=== PATIENT | female | born 1950 | race Caucasian/White ===

== ENCOUNTER 2018-01-04 08:29 | Observation (INO) | payer BC ==
[~2018-01-04] VITALS: Ht 167.6 cm; Wt 90.0 kg
[~2018-01-04 08:29] MED LIST: ALBUTEROL SULF8.5 GM IH; ALBUTEROL17 GM INH; ASPIR 8181 MG PO; ATROVENT HFA12.9 GM INH; Aspirin PO; CEFTIN250 MG PO; HYDROCHLOROTHIA25 MG PO; IBUPROFEN400 MG PO; KLONOPIN0.5 M1 PO; LEXAPRO20 MG PO; LORTAB 7.5-5001 EACH PO; LOVENOX30 MG/0.3 SC; PREDNISONE20 MG PO; PREMPRO 0.3 MG1 EACH PO; PREMPRO 0.45-11 EACH PO; SYMBICORT 160-4.6 GM; SYMBICORT 16010.2 GM HHN; TRIAMTERENE-HCTZ1 EA PO; VENTOLIN HFA18 GM HHN; Z.0.BENICAR HCT 201 PO; Z.0.FLONASE16 GM INH; Z.0.LEXAPRO20 MG PO; Z.0.PROTONIX20 MG PO; [UNRECOGNIZED DRUG - OTHER]
[2018-01-04 08:42] LABS: ABG PCO2 28 mmHg (41-51); ABG PH 7.51 (7.31-7.41); ABG PO2 189 mmHg (80-105)
[2018-01-04 08:43] LABS: ABG HCO3 23 mmol/L (23-28)
[2018-01-04 08:49] LABS: BASOPHILS % 0.3 % (0.0-1.0); EOSINOPHILS # (AUTO) 0.1 (0.0-0.4); EOSINOPHILS % 1.3 % (0.0-6.0); HEMATOCRIT 38.7 % (34.2-44.1); MEAN CORPUSCULAR HEMOGLOBIN 27.7 pg (28-32); MEAN CORPUSCULAR HGB CONC 33.6 g/dL (31-35); MEAN CORPUSCULAR VOLUME 82.3 fL (81-99); MONOCYTES # (AUTO) 0.8 (0.2-0.8); MONOCYTES % 8.6 % (4.4-11.3); NEUTROPHILS # (AUTO) 5.7 (2.1-6.9); NEUTROPHILS % 57.9 % (38.7-80.0); PLATELET COUNT 276 x10e3/uL (140-360); RED CELL DISTRIBUTION WIDTH 13.4 % (11.7-14.4)
[2018-01-04 08:53] LABS: INR 1.15; PARTIAL THROMBOPLASTIN TIME 28.1 seconds (23.8-35.5); PROTHROMBIN TIME 13.8 seconds (11.9-14.5)
[2018-01-04 09:03] LABS: ALANINE AMINOTRANSFERASE 49 IU/L (0-55); ALBUMIN 4.2 g/dL (3.5-5.0); ALBUMIN/GLOBULIN RATIO 1.3 (0.8-2.0); ALKALINE PHOSPHATASE 79 IU/L (40-150); ANION GAP 16.1 mmol/L (8-16); BLOOD UREA NITROGEN 23 mg/dL (7-26); BUN/CREATININE RATIO 25 (6-25); CALCIUM 9.9 mg/dL (8.4-10.2); CARBON DIOXIDE 23 mmol/L (22-29); CHLORIDE 99 mmol/L (98-107); CREATINE KINASE 78 IU/L (29-168); CREATININE, SERUM 0.92 mg/dL (0.57-1.11); EST GLOMERULAR FILTRATION RATE > 60 ML/MIN (60-); GLUCOSE 148 mg/dL (74-118); LIPASE 56 U/L (8-78); POTASSIUM 3.1 mmol/L (3.5-5.1); SODIUM 135 mmol/L (136-145)
--- NOTE | 2018-01-04 09:13 | Diagnostic Imaging Report ---
PROCEDURE: A single AP view of the chest. COMPARISON: Portable chest 02/03/2017. INDICATIONS: SYNCOPE, WEAKNESS, RAPID RESPONSE FINDINGS: Lines/tubes: None. Lungs: No focal consolidation. No parenchymal mass. Low lung volumes are present bilaterally. Pleura: There is no pleural effusion or pneumothorax. Heart and mediastinum: The heart and the mediastinum are unremarkable. Bones: No acute bony abnormality. IMPRESSION: No acute radiographic abnormality. Dictated by: Kd Meza M.D. on 01/04/2018 at 9:14 Electronically approved by: Kd Meza M.D. on 01/04/2018 at 9:14
--- NOTE | 2018-01-04 09:59 | Diagnostic Imaging Report ---
Exam: Head CT without contrast History: Syncope Comparison studies: Head CT 02/01/2013 Technique: Axial images were obtained from the skull base to the vertex. Coronal and sagittal images reconstructed from the axial data. Intravenous contrast: None Findings: Scalp: No abnormalities. Bones: No fractures, blastic or lytic lesions. Brain sulci: Appropriate for age. Ventricles: Normal in size and configuration. No hydrocephalus. Extra-axial spaces: No masses, no fluid collection. Parenchyma: No mass, acute hemorrhage or acute cortical vascular insults. A few subtle hypodensities in the supratentorial white matter are nonspecific but most compatible with chronic small vessel ischemic changes. Sellar/suprasellar region: No abnormalities. Craniocervical junction: Patent foramen magnum. No Chiari one malformation. IMPRESSION: 1. No acute intracranial abnormalities. 2. No significant changes from the previous head CT of 02/01/2013. Signed by: Dr. Ino Brown M.D. on 01/04/2018 9:55 AM
[2018-01-04] MEDS ORDERED: POTASSIUM CHLORIDE 20 MEQ TAB CR PO STA (10:20)
--- OUTSIDE RECORDS SUMMARY | 2018-01-04 10:28 | XMS REPORT ---
Author Author [facility] Address Unknown Phone Unavailable Care Team Providers Care Accountant Name Role Phone BEL HARRIS Unavailable Unavailable Problems This patient has no known problems. Allergies, Adverse Reactions, Alerts This patient has no known allergies or adverse reactions. Medications This patient has no known medications. Results Test Description Test Time Test Comments Text Results Atomic Results Result Comments CT BRAIN WO [place] [address] Patient Name: GALLO MALONEY MR #: [id number] : 1950 Age/Sex: 67/F Req #: [id number] Adm Physician: Ordered by: BEL HARRIS MD Report #: [id number] Location: ER Room/Bed: Procedure: [id number] CT/CT BRAIN WO Exam Date: 01/04/18 Exam Time: 0920 REPORT STATUS: Signed Exam: Head CT without contrast History: Syncope Comparison studies: Head CT 02/01/2013 Technique: Axial images were obtained from the skull base to the vertex. Coronal and sagittal images reconstructed from the axial data. Intravenous contrast: None Findings: Scalp: No abnormalities. Bones: No fractures, blastic or lytic lesions. Brain sulci: Appropriate for age. Ventricles: Normal in size and configuration. No hydrocephalus. Extra-axial spaces: No masses, no fluid collection. Parenchyma: No mass, acute hemorrhage or acute cortical vascular insults. A few subtle hypodensities in the supratentorial white matter are nonspecific but most compatible with chronic small vessel ischemic changes. Sellar/suprasellar region: No abnormalities. Craniocervical junction: Patent foramen magnum. No Chiari one malformation. IMPRESSION : 1. No acute intracranial abnormalities. 2. No significant changes from the previous head CT of 02/01/2013. Signed by: Dr. Elizabeth Brown M.D. on 01/04/2018 9:55 AM Dictated By: ELIZABETH BROWN MD 4 Transcribed By: ROBINA on 01/04 COPY TO: BEL HARRIS MD CHEST SINGLE (PORTABLE) [place] [address] Patient Name: GALLO MALONEY MR #: [id number] : 1950 Age/Sex: 67/F Req #: [id number] Adm Physician: Ordered by: BEL HARRIS MD Report #: [id number] Location: ER Room/Bed: Procedure: [id number] DX/CHEST SINGLE (PORTABLE) Exam Date: 01/04/18 Exam Time: 0845 REPORT STATUS: Signed PROCEDURE: A single AP view of the chest. COMPARISON: Portable chest 02/03/2017. INDICATIONS: SYNCOPE, WEAKNESS, RAPID RESPONSE FINDINGS: Lines/ tubes: None. Lungs: No focal consolidation. No parenchymal mass. Low lung volumes are present bilaterally. Pleura: There is no pleural effusion or pneumothorax. Heart and mediastinum: The heart and the mediastinum are unremarkable. Bones: No acute bony abnormality. IMPRESSION: No acute radiographic abnormality. Dictated by: Phil Fuentes M.D. on 01/04/2018 at 9:14 Electronically approved by: Phil Fuentes M.D. on 01/04/2018 at 9:14 Dictated By: PHIL FUENTES MD 3 Transcribed By: KEANU on 01/04/18913 COPY TO: BEL HARRIS MD
[2018-01-04] MEDS ORDERED: SODIUM CHLORIDE 0.9% 500ML 500 ML IV ONE (10:30)
--- NOTE | 2018-01-04 11:30 | Consultation ---
DATE OF CONSULTATION: January 04, 2018 CARDIOLOGY CONSULTATION REASON FOR CONSULTATION: Syncope. HISTORY: This is a delightful 67-year-old lady who is known with hypertension, reactive airway disease and obesity. She had in the past several episodes of syncope. She had a loop recorder. She came to this institution in January 2017 with chest pain and [id number]-[id number] changes. This pain was very severe. For that, at that time, she had a cardiac catheterization, which showed the presence of 50% mid-LAD disease. Her FFR was negative. Patient was treated medically. Regarding her history of syncope, the patient all of a sudden today, while she was with a colleague, felt dizzy and sick to her stomach, and she collapsed on the floor. Patient was rushed to the emergency room. She was hypotensive. She was diaphoretic, and she was not feeling very well. However, this all cleared, and now she is feeling fine, and she describes this episode of syncope. Of interest, in 2012, she had several episodes like that. At one stage, she had CPR. She had a loop recorder. REVIEW OF SYSTEMS GENERAL: No fever. No chills. PULMONARY: No cough. No hemoptysis. No recent travel. No chest pain. CARDIAC: All the episodes of syncope and near syncope. No angina. Possible sleep apnea. GI: No hematemesis. No melena. : No hematuria. No dysuria. NEUROMUSCULAR: Nonspecific aches and pain. HEMATOLOGICAL: No easy bruising or bleeding. HOME MEDICATIONS: Maxzide 1 tablet a day, aspirin 81 mg a day, Lexapro, Prempro, Protonix, Symbicort inhaler. ALLERGIES: LISINOPRIL, MOTRIN AND LEVAQUIN. PAST MEDICAL HISTORY 1. Syncope, CPR and bradycardia. 2. Gastric band surgery in 2004 and 2006. 3. Knee surgeries. 4. Allergic rhinitis and asthmatic reactive airway disease. 5. Decreased hearing since a young age. 6. Cholecystectomy. 7. Hypertension. FAMILY HISTORY: Father of complication of congestive heart failure. He was diabetic. He had coronary artery disease. Mother at age 62. One healthy brother and 2 sisters. One sister had endocarditis and valve replacement. No children. PHYSICAL EXAMINATION VITALS: Height of 5 feet 6 inches, weight of 280 pounds. Blood pressure 110/70. Heart rate of 60. Respiratory rate of 18. HEENT: Remarkable for decreased hearing. NECK: No elevation of jugular venous pulsation. No bruit. CHEST: Clear to auscultation and percussion. HEART: PMI at 5th left intercostal space. Normal 1st and 2nd heart sounds. ABDOMEN: Soft with good bowel sounds. EXTREMITIES: No cyanosis. No clubbing. No edema. No signs of deep venous thrombosis. NEUROLOGIC: Awake, alert, oriented, nonfocal except for decreased hearing. LABORATORY DATA: EKG showing normal sinus rhythm. Depressed ST-T segment in inferolateral leads. Labs are pending. IMPRESSION AND PLAN 1. Syncope. 2. Hypertension. 3. Obesity. 4. Reactive airway disease. PLAN: The patient will be followed on telemetry. Will try to check her loop recorder. Will consult EP service for evaluation. Plan discussed and explained to the patient. Her questions are answered. Job#: [id number]
[2018-01-04 11:38] VITALS: BP 127/76
[2018-01-04 11:42] VITALS: BP 127/76
[2018-01-04 16:23] VITALS: BP 138/63
[2018-01-04 16:37] LABS: CREATINE KINASE 67 IU/L (29-168)
--- NOTE | 2018-01-04 17:25 | Consultation ---
DATE OF CONSULTATION: January 04, 2018 REASON FOR CONSULTATION: Syncope. Ms. Caldwell is a pleasant 67-year-old woman with longstanding history of syncope. I know her from 2012 when she was having frequent episodes. She ended up having a cardiac workup including heart cath which showed nonobstructive coronary artery disease and at the same time we implanted loop monitor 4 years ago, which never showed any episodes, even despite her having some symptoms and upon interrogation today the loop monitor battery is out. This episode today was while she was at work. She was feeling dry mouth and also her potassium was 3.1 and as witnessed by one of her coworkers she fainted and passed out. CPR was initiated and in the emergency room her blood pressure was very low, and gradually she recovered. PAST MEDICAL HISTORY: Hypertension, asthma, nonobstructive coronary artery disease, syncope, obesity. 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. No drugs or smoking. FAMILY HISTORY: Negative for sudden or atrial fibrillation. REVIEW OF SYSTEMS: As above and otherwise is negative for fever, chills, loss of vision, blurry vision, ear pain, ear discharge, headache, numbness, chest pain, palpitations, cough with sputum, nausea, vomiting, dysuria, frequency, rash, bruise, bleeding, clots, anxiety, depression, heat or cold intolerance. PHYSICAL EXAMINATION VITAL SIGNS: Blood pressure 110/70, heart rate 65 beats per minute. GENERAL: The patient is laying in bed in no apparent distress. NECK: No lymphadenopathy. Thyroid exam is normal. CARDIOVASCULAR: S1 and S2. LUNGS: Clear bilaterally. ABDOMEN: Soft, benign. EXTREMITIES: Warm and dry. NEUROLOGIC: Nonfocal. SKIN: No new rash. LABORATORY DATA: Potassium 3.1. Loop monitor interrogation did not show anything as the battery was depleted last year. ASSESSMENT AND PLAN: A 67-year-old woman, otherwise normal cardiac history, who presented with syncopal event. May have been due to dehydration. She had dry mouth and also had been working that day. She did have low blood pressure recorded in the emergency room. It appears that she is presenting with neurocardiogenic syncope, which sometimes is dramatic. As per guidelines in refractory cases, pacemaker may be a class 2 indication to help moderate and soften the syncope response, especially if there is more component of cardioinhibitory affect. I discussed this option of pacemaker with her and potentially the softening episodes versus watchful waiting. She wants to discuss with her , but is leaning towards watchful waiting and conservative management including more appropriate hydration, which I think is reasonable as well. I will update Dr. Walker. In summary, severe neurocardiogenic syncope, which can be offered dual pacemaker if conservative management fails. She has dealt with this for several years. She is leaning towards doing more conservative management. We will continue to follow. Job#: [id number]
[2018-01-04 19:40] VITALS: BP 128/61
[2018-01-04 20:00] VITALS: BP 128/61
[2018-01-04] MEDS ORDERED: ACETAMINOPHEN 325 MG TAB PO PRN (20:15)
[2018-01-05 02:48] LABS: CREATINE KINASE 54 IU/L (29-168)
[2018-01-05 05:15] VITALS: BP 137/68
[2018-01-05 08:29] VITALS: BP 115/56
[2018-01-05] MEDS ORDERED: ASPIRIN 325 MG TAB EC PO SCH (09:00)
== END 2018-01-05 09:18 | disposition home or self-care (01) ==
LOC: ER 08:29 → ERHOLD 10:25 → IMCU 10:38
PROVIDERS: ADMIT Internal Medicine; ATTEND Internal Medicine
DX: R55 Syncope and collapse (principal); I10 Essential (primary) hypertension; J45.909 Unspecified asthma, uncomplicated; E66.9 Obesity, unspecified; E86.0 Dehydration; Z95.811 Presence of heart assist device
CPT/HCPCS: 36415 ×2; 70450; 71045; 80053; 82550 ×2; 82553 ×2; 82805; 83690; 83880; 84484 ×2; 85025; 85610; 85730; 93005; 99285; G0378 ×2

== ENCOUNTER 2018-02-15 19:35 | Inpatient (IN) | payer BC ==
[~2018-02-15] VITALS: Ht 168.9 cm; Wt 134.3 kg
[2018-02-15] MEDS ORDERED: PANTOPRAZOLE 40 MG 10ML VIAL IV STA (19:42)
[2018-02-15] MEDS ORDERED: SODIUM CHLORIDE 0.9% 1000ML 1,000 ML IV STA (19:42)
[2018-02-15] MEDS ORDERED: SODIUM CHLORIDE 0.9% 1000ML 1,000 ML ONE (19:44)
[2018-02-15 19:55] LABS: BASOPHILS % 0.3 % (0.0-1.0); EOSINOPHILS # (AUTO) 0.1 (0.0-0.4); EOSINOPHILS % 0.9 % (0.0-6.0); HEMATOCRIT 41.9 % (34.2-44.1); HEMOGLOBIN 13.5 g/dL (12.0-16.0); LYMPHOCYTES # (AUTO) 2.7 (1.0-3.2); LYMPHOCYTES % 24.9 % (18.0-39.1); MEAN CORPUSCULAR HEMOGLOBIN 27.3 pg (28-32); MEAN CORPUSCULAR HGB CONC 32.2 g/dL (31-35); MEAN CORPUSCULAR VOLUME 84.6 fL (81-99); MONOCYTES # (AUTO) 0.7 (0.2-0.8); MONOCYTES % 6.4 % (4.4-11.3); NEUTROPHILS # (AUTO) 7.2 (2.1-6.9); NEUTROPHILS % 66.9 % (38.7-80.0); PLATELET COUNT 276 x10e3/uL (140-360); RED BLOOD COUNT 4.95 x10e6/uL (3.6-5.1); RED CELL DISTRIBUTION WIDTH 13.4 % (11.7-14.4)
[2018-02-15 20:01] LABS: INR 1.06
[2018-02-15 20:02] LABS: PARTIAL THROMBOPLASTIN TIME 28.7 seconds (23.8-35.5)
--- NOTE | 2018-02-15 20:07 | Diagnostic Imaging Report ---
EXAMINATION: Head CT without contrast. HISTORY:Syncope. COMPARISON:CT brain from 01/04/2018. TECHNIQUE: Multidetector axial images were obtained from the foramen magnum to the vertex without contrast. The images were reconstructed using brain and bone algorithms. Thin section brain images were reformatted into coronal and sagittal planes. Intravenous contrast: None IMAGE QUALITY: Acceptable. FINDINGS: Skull/scalp: No lytic or blastic. lesions. No surgical changes. Parenchyma: No abnormal density. No acute hemorrhage, mass or acute major vascular territorial infarct. Arteries: No density suggestive of thrombosis. Dural sinuses: No abnormal density suggestive of thrombosis. Ventricles: No hydrocephalus or displacement. Extra-axial spaces: No abnormal density. Brain volume: Normal for age. Craniocervical junction: No mass, Chiari malformation, or basilar invagination. Sella: No mass. Paranasal/mastoid sinuses: Imaged portions unremarkable. IMPRESSION: No acute intracranial abnormality. Mild generalized cerebral volume loss. Signed by: Dr. Shilpa العلي M.D. on 02/15/2018 8:03 PM
[2018-02-15 20:14] LABS: ALANINE AMINOTRANSFERASE 35 IU/L (0-55); ALBUMIN 4.4 g/dL (3.5-5.0); ALBUMIN/GLOBULIN RATIO 1.2 (0.8-2.0); ALKALINE PHOSPHATASE 75 IU/L (40-150); AMYLASE 31 U/L (25-125); ANION GAP 17.8 mmol/L (8-16); BLOOD UREA NITROGEN 27 mg/dL (7-26); BUN/CREATININE RATIO 27 (6-25); CALCIUM 10.7 mg/dL (8.4-10.2); CARBON DIOXIDE 25 mmol/L (22-29); CHLORIDE 99 mmol/L (98-107); CREATINE KINASE 48 IU/L (29-168); EST GLOMERULAR FILTRATION RATE 56 ML/MIN (60-); GLUCOSE 118 mg/dL (74-118); LIPASE 16 U/L (8-78); MAGNESIUM 1.5 MG/DL (1.3-2.1); POTASSIUM 3.8 mmol/L (3.5-5.1); SODIUM 138 mmol/L (136-145)
--- NOTE | 2018-02-15 20:25 | Diagnostic Imaging Report ---
EXAMINATION: CHEST SINGLE (PORTABLE) COMPARISON: 02/03/2017 INDICATION: Syncope DISCUSSION: Frontal view of the chest obtained at 2000 hours. HEART AND MEDIASTINUM: The cardiomediastinal silhouette is unremarkable. Loop recorder device is stable. LINES: None. LUNGS: The lungs are well inflated and clear. No pneumonia or pulmonary edema. There is stable eventration of the right diaphragm. PLEURA: No pleural effusion or pneumothorax. BONES AND SOFT TISSUES: No focal osseous lesion. The soft tissues are normal. IMPRESSION: Stable chest. No active disease. Signed by: Dr. Bailey Villafuerte MD on 02/15/2018 8:22 PM
[2018-02-15 20:27] LABS: THYROID STIMULATING HORMONE 2.985 uIU/mL (0.350-4.940)
[2018-02-15] MEDS ORDERED: ONDANSETRON HCL 4 MG ORAL DISINTEGRATING TAB PO PRN (21:45)
[2018-02-15] MEDS ORDERED: ONDANSETRON HCL 4 MG ORAL DISINTEGRATING TAB PO ONE (21:45)
[2018-02-15] MEDS ORDERED: SODIUM CHLORIDE 0.9% 500ML 500 ML IV ONE (21:45)
[2018-02-15] MEDS ORDERED: ACETAMINOPHEN 325 MG TAB ONE (23:21)
[2018-02-15] MEDS: ACETAMINOPHEN 325 MG TAB PO PRN (23:35)
[2018-02-15] MEDS ORDERED: PANTOPRAZOLE SO40 MG PO (23:55)
[2018-02-16] VITALS (9 sets, daily range): BP systolic 128–152; BP diastolic 59–70
[2018-02-16 04:06] LABS: BASOPHILS % 0.2 % (0.0-1.0); EOSINOPHILS # (AUTO) 0.2 (0.0-0.4); EOSINOPHILS % 1.8 % (0.0-6.0); HEMATOCRIT 35.7 % (34.2-44.1); HEMOGLOBIN 11.5 g/dL (12.0-16.0); LYMPHOCYTES # (AUTO) 2.5 (1.0-3.2); MEAN CORPUSCULAR HEMOGLOBIN 27.3 pg (28-32); MEAN CORPUSCULAR HGB CONC 32.2 g/dL (31-35); MEAN CORPUSCULAR VOLUME 84.8 fL (81-99); MONOCYTES # (AUTO) 0.7 (0.2-0.8); MONOCYTES % 7.8 % (4.4-11.3); NEUTROPHILS # (AUTO) 5.3 (2.1-6.9); NEUTROPHILS % 60.7 % (38.7-80.0); PLATELET COUNT 197 x10e3/uL (140-360); RED BLOOD COUNT 4.21 x10e6/uL (3.6-5.1); RED CELL DISTRIBUTION WIDTH 13.4 % (11.7-14.4)
[2018-02-16 04:23] LABS: ALANINE AMINOTRANSFERASE 27 IU/L (0-55); ALBUMIN/GLOBULIN RATIO 1.2 (0.8-2.0); ALKALINE PHOSPHATASE 66 IU/L (40-150); ANION GAP 13.8 mmol/L (8-16); BLOOD UREA NITROGEN 22 mg/dL (7-26); BUN/CREATININE RATIO 28 (6-25); CALCIUM 9.4 mg/dL (8.4-10.2); CARBON DIOXIDE 24 mmol/L (22-29); CHLORIDE 103 mmol/L (98-107); CHOL/HDL RATIO 4.6 (3.0-3.6); CHOLESTEROL 151 MD/DL (0-199); CREATININE, SERUM 0.78 mg/dL (0.57-1.11); EST GLOMERULAR FILTRATION RATE > 60 ML/MIN (60-); GLUCOSE 123 mg/dL (74-118); HDL CHOLESTEROL 33 MG/DL (40-60); LDL CHOLESTEROL 89 MG/DL (60-130); POTASSIUM 3.8 mmol/L (3.5-5.1); SODIUM 137 mmol/L (136-145); TRIGLYCERIDES 147 MG/DL (0-149)
[2018-02-16 04:29] LABS: ALBUMIN 3.4 g/dL (3.5-5.0)
[2018-02-16 04:42] LABS: CREATINE KINASE 42 IU/L (29-168)
[2018-02-16 04:57] LABS: BILIRUBIN,URINE NEGATIVE (NEGATIVE); CLARITY,URINE CLEAR (CLEAR); COLOR,URINE YELLOW (YELLOW); KETONES,URINE NEGATIVE (NEGATIVE); LEUKOCYTE ESTERASE ,URINE NEGATIVE (NEGATIVE); NITRITE,URINE NEGATIVE (NEGATIVE); PROTEIN,URINE DIPSTICK NEGATIVE (NEGATIVE); URINE UROBILINOGEN 0.2 mg/dL (0.2 - 1)
[2018-02-16 05:23] LABS: BACTERIA,URINE RARE /HPF; EPITHELIAL CELLS,URINE FEW /LPF; RBC,URINE 0-5 /HPF (0-5); WBC,URINE (MAN) 0-5 /HPF (0-5)
[2018-02-16] MEDS: ACETAMINOPHEN 325 MG TAB PO PRN ×2 (10:41→23:02)
[2018-02-16] MEDS: SODIUM CHLORIDE 0.9% 1000ML 1,000 ML IV SCH ×2 (11:19→17:25)
[2018-02-16 12:38] LABS: CREATINE KINASE 52 IU/L (29-168)
--- NOTE | 2018-02-16 13:42 | Consultation ---
DATE OF CONSULTATION: February 16, 2018 REASON FOR CONSULTATION: Syncope. HISTORY OF PRESENT ILLNESS: This is a 67-year-old female, well known to practice, with history of hypertension, reactive airway disease and obesity. Also with multiple episodes of syncope. Patient also with history of left heart catheterization with mild LAD disease. Has been on medical therapy since. Yesterday, while at work, patient apparently had another syncopal episode. States she was sitting at the desk giving a report to her colleague in which she basically became very dizzy, lightheaded, and passed out. Next recollection she says basically had her staff around her, talking to her. No reports of incontinence reported. Of note, patient recently on about January 04 had a similar episode. At that time options were given to her by EP from pacemaker implantation to watchful waiting. Patient decided that she just wanted to watch and see, however this is her second episode in less than a month and a half. Patient now has been scheduled for pacemaker implantation this afternoon by EP. PAST MEDICAL HISTORY 1. Syncope with history of CPR. 2. Mild CAD with 50% mid LAD disease. 3. Hypertension. 4. Reactive airway disease. 5. Obesity. SURGICAL HISTORY: Includes gastric band surgery in 2004 and 2006, knee surgeries, cholecystectomy. FAMILY HISTORY: Father from complications of heart failure, also from CAD, and diabetes. Mother at age 62. SOCIAL HISTORY: She is . 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 No alcohol use. No tobacco use. HOME MEDICATIONS: Include albuterol, aspirin, Flonase, Protonix, triamterene/hydrochlorothiazide and Lexapro. REVIEW OF SYSTEMS GENERAL: No fever. No chills. No weight loss, weight gain. SKIN: No rashes, no sores. HEENT: Occasional dizziness, lightheadedness. No headaches. No sore throat. No hemoptysis. CARDIAC: Denies any chest pain. Positive for dyspnea on exertion. Positive for multiple syncopal episodes or near syncope episodes. RESPIRATORY: Positive shortness of breath with exertion. No hemoptysis. GI: No nausea, vomiting, diarrhea, constipation. No hematochezia. No melena. : No hematuria. No dysuria. No nocturia. VASCULAR: Occasional lower extremity edema. HEMATOLOGY: No bruising, bleeding. PHYSICAL EXAMINATION VITALS: Height 66 inches. Weight 296 pounds. Temperature 96.3, pulse 65, respiratory rate 20, blood pressure 128/59. Pulse ox 98% on room air. GENERAL: Reliable informant. No acute distress. HEENT: Normocephalic. Pupils equal and reactive. Extraocular motor intact. Trachea midline. Oral mucosa pink. No thyromegaly, no JVD, no carotid bruit noted. CARDIAC: Plus 1, plus 2. Regular rate and rhythm. PMI about 4th/5th intercostal space. RESPIRATORY: Bilaterally clear to auscultation. GI: Soft, nontender, nondistended. No organomegaly. MUSCULOSKELETAL: Good muscle strength throughout. Plus 1 lower extremity edema. VASCULAR: Plus 2 bilateral radial pulses, +2 bilateral DP and PT pulses. NEUROLOGIC: Cranial nerves II-XII seem intact. ASSESSMENT AND PLAN 1. Syncope. 2. Hypertension. 3. Obesity. 4. Reactive airway disease. PLAN-REILLY 1. Patient presents with repeated syncopal episode. Has been on observation. EP has been consulted and plan is for permanent pacemaker to be placed this afternoon. 2. Continue tele monitoring for now. 3. Continue her antihypertensive. 4. Will continue to follow patient and adjust cardiac therapy as course dictates. Thank you very much for this consult. Seen and examined Agree with above note Dictated by: Ino Dias NP Job#: [id number] BALDEV MARIN
[2018-02-16] MEDS ORDERED: IOPAMIDOL 370 MG/ML 200 ML INFUS..BTL INJ ONE (13:58)
[2018-02-16] MEDS ORDERED: SODIUM CHLORIDE 0.9% 100 ML ONE (13:58)
[2018-02-16] MEDS ORDERED: SODIUM CHLORIDE 0.9% 50ML 50 ML ONE (13:58)
--- NOTE | 2018-02-16 15:14 | Diagnostic Imaging Report ---
Examination: Cervical and Intracranial CT Angiogram with Contrast History: Headache. Syncope. Evaluate for carotid stenosis.. Comparison studies: None Technique: Axial images were obtained from the thoracic inlet. Coronal and sagittal images reconstructed from the axial data. Intravenous contrast: 100 mL of Isovue-370. Degree of stenosis at the carotid bulbs, if present, will be calculated using NASCET criteria where the smallest diameter at the location of stenosis is compared to the diameter of the more distal non-diseased vessel lumen. Findings: CTA neck: Aortic arch and major vessels: Patent. Common carotid arteries: Patent. Retropharyngeal course bilaterally. Cervical carotid bifurcations: Right: Patent. Left :Patent. Internal carotid arteries: Right: Patent. Left: Patent. Vertebral arteries: Patent. CTA head: Internal carotid arteries: Patent. Anterior cerebral arteries: Patent A1 and A2 segments. Middle cerebral arteries: Patent M1 and M2 segments. Posterior cerebral arteries: Patent. Vertebro-basilar system: Patent. Anatomical variants: Anterior communicating artery :Present Posterior communicating arteries: Patent and visualized on the right. Not visualized on the left. Vertebral arteries: Codominant. IMPRESSION: No cervical or intracranial arterial stenosis or occlusion or vascular malformation. Signed by: Dr. Vivienne Rose M.D. on 02/16/2018 3:10 PM
[2018-02-17] VITALS (8 sets, daily range): BP systolic 130–154; BP diastolic 60–71
[2018-02-17] MEDS: SODIUM CHLORIDE 0.9% 1000ML 1,000 ML IV SCH ×2 (00:05→06:47)
[2018-02-17] MEDS ORDERED: MIDAZOLAM HCL 2 MG/2 ML VIAL ONE ×4 (07:32→10:15)
[2018-02-17] MEDS ORDERED: LIDOCAINE HCL 2% LOCAL 20 ML VIAL ONE ×2 (07:33→10:11)
[2018-02-17] MEDS ORDERED: BACITRACIN 50,000 UNIT VIAL ONE ×2 (07:33→10:18)
[2018-02-17] MEDS ORDERED: FENTANYL CITRATE/PF 100MCG/2 ML INJ ONE ×3 (07:33→10:15)
[2018-02-17] MEDS ORDERED: SODIUM CHLORIDE 0.9% 1000ML 1,000 ML ONE (07:34)
[2018-02-17] MEDS ORDERED: SODIUM CHLORIDE 0.9% 500ML 1,000 ML ONE (07:34)
[2018-02-17] MEDS ORDERED: CEFAZOLIN SOD 2 GM/D5W 50ML 50 ML IV ONE (08:40)
[2018-02-17] MEDS ORDERED: SODIUM CHLORIDE 0.9% 500ML 500 ML ONE (10:19)
[2018-02-17] MEDS ORDERED: MORPHINE SULFATE 2 MG/ML SYR IV PRN (10:45)
--- NOTE | 2018-02-17 12:02 | Diagnostic Imaging Report ---
Examination: Single AP view of the chest. COMPARISON: Portable chest 02/15/2018 INDICATION: Syncope, postop pacemaker placement IMPRESSION: Exam limited by patient rotation. 1. Lines and Tubes: Interval placement of right-sided dual lead cardiac device, with distal tip projecting in the right atrium and right ventricle. 2. Lungs are grossly clear. No consolidation or effusion. 3. Cardiomediastinal silhouette is unremarkable. Pulmonary vasculature is normal. 4. No acute bony abnormalities. Signed by: Dr. Kiet Soto M.D. on 02/17/2018 11:58 AM
[2018-02-17] MEDS: MINOCYCLINE HCL 50 MG CAP PO SCH ×2 (12:37→20:48)
[2018-02-17] MEDS: ACETAMINOPHEN 325 MG TAB PO PRN (20:48)
[2018-02-18 04:00] VITALS: BP 177/84
[2018-02-18] MEDS: ACETAMINOPHEN 325 MG TAB PO PRN (04:39)
[2018-02-18] MEDS ORDERED: MINOCYCLINE HCL50 MG PO (06:49)
[2018-02-18] MEDS ORDERED: TYLENOL # 31 EA PO (06:50)
[2018-02-18 07:20] VITALS: BP 159/72
[2018-02-18] MEDS: MINOCYCLINE HCL 50 MG CAP PO SCH (09:25)
[2018-02-18 09:30] VITALS: BP 159/72
--- NOTE | 2018-03-15 14:12 | Operative Report ---
DATE OF PROCEDURE: February 17, 2018 PREPROCEDURE DIAGNOSIS: Multiple episodes of syncope, bradycardia, vasovagal, unresponsive to management. Significant syncope leading to loss of consciousness and falls. PROCEDURES PERFORMED 1. Dual-chamber pacemaker placement. 2. Explantation of old implantable loop monitor. 3. Moderate sedation with 3 of Versed and 75 of fentanyl for 60 minutes, while oxygen saturation, heart rate and blood pressure were being monitored by me and the circulating nurse. PROCEDURE IN DETAIL: The patient was brought to the EP lab in a fasting state. The left chest was prepped and draped in a sterile fashion. Conscious sedation with fentanyl and Versed was administered. Ancef was given. Left subclavian venography was performed. A 3-cm skin incision was made in the subcutaneous tissue, and a pocket was formed. Two guidewires were inserted inside the left axillary vein using modified Seldinger technique with no complication. Pacing lead was advanced to the RV apex with sensing 20, threshold 0.5, impedance 1100 ohms. Another pacing lead was advanced to the right atrial appendage, sensing 6.4, threshold 0.9, impedance 590 ohms. Both leads were sutured to the fascia using #0 silk. The pocket was profusely irrigated using antibiotic solution. The leads were connected to a HRsoft dual-chamber permanent pacemaker, serial number [id number]. Generator was placed inside the pocket and sutured to the fascia using #0 silk. Subcutaneous tissue was approximately with 2-0 Vicryl in 2 layers. The skin was approximated using 4-0 Monocryl and Dermabond. The patient tolerated the procedure well. There were no complications. CONCLUSION: Dual-chamber permanent pacemaker placement. At this point, local numbness was administered over the implantable loop monitor. A 5-mm skin incision was made. The subcutaneous tissue and pocket were dissected. All of the loop monitor was removed from the pocket. The pocket was flushed using antibiotic solution. The subcutaneous tissue was approximated with 2-0 Vicryl in 2 layers. The skin was approximated with 4-0 Monocryl and Dermabond. The patient tolerated the procedure well with no complications. CONCLUSION: Dual-chamber permanent pacemaker placement. Implantable loop monitor removal. Moderate sedation. Clinic followup in 2 weeks. Job#: [id number]
== END 2018-02-18 10:29 | disposition home or self-care (01) | DRG 243 ==
LOC: ER 19:35 → MED/SURG 22:55
PROVIDERS: ADMIT Internal Medicine; ATTEND Internal Medicine
PROC: 0JH606Z Insertion of Pacemaker, Dual Chamber into Chest Subcutaneous Tissue and Fascia, Open Approach (ICD-10-PCS; principal; 2018-02-17)
PROC: 02H63JZ Insertion of Pacemaker Lead into Right Atrium, Percutaneous Approach (ICD-10-PCS; 2018-02-17)
PROC: 02HK3JZ Insertion of Pacemaker Lead into Right Ventricle, Percutaneous Approach (ICD-10-PCS; 2018-02-17)
PROC: 0JPT02Z Removal of Monitoring Device from Trunk Subcutaneous Tissue and Fascia, Open Approach (ICD-10-PCS; 2018-02-17)
DX: R55 Syncope and collapse (principal); Z68.42 Body mass index [BMI] 45.0-49.9, adult; I25.10 Atherosclerotic heart disease of native coronary artery without angina pectoris; I10 Essential (primary) hypertension; E66.9 Obesity, unspecified; J45.909 Unspecified asthma, uncomplicated; Z88.1 Allergy status to other antibiotic agents; Z88.8 Allergy status to other drugs, medicaments and biological substances; Z98.84 Bariatric surgery status; Z83.3 Family history of diabetes mellitus; Z82.49 Family history of ischemic heart disease and other diseases of the circulatory system
CPT/HCPCS: 33208; 33284; 36005; 36415; 70450; 70496; 70498; 71045; 80053; 80061; 81001; 82150; 82550; 82553; 83605; 83690; 83735; 83880; 84443; 84484; 85025; 85610; 85730; 87040; 87086; 93005; 93306; 93880; 97139; 99284; C1898; J2001; J2250; J7030; J7040; J7050; Q9967

== ENCOUNTER → 2018-06-11 | Outpatient (CLI) | payer BC ==
[~2018-06-11] MED LIST changes: +MINOCYCLINE HCL50 MG PO; +PANTOPRAZOLE SO40 MG PO; +TYLENOL # 31 EA PO
--- NOTE | 2018-06-11 10:30 | Diagnostic Imaging Report ---
PROCEDURE: CT CHEST WITHOUT CONTRAST CT scan of the chest WITHOUT intravenous contrast, using standard protocol. TECHNIQUE: The chest was scanned utilizing a multidetector helical scanner from the apex to the level of the adrenal glands. No IV contrast was administered because of referring physician request. Coronal and sagittal multiplanar reformations were obtained. COMPARISON: Chest radiograph 02/17/2018. INDICATIONS: ABNORMAL CHEST X-RAY FINDINGS: Lines/tubes: Left subclavian approach cardiac device body lies in the pre-pectoral soft tissues of the left chest wall. Leads terminate in the right atrium and right ventricle.. Lungs and Airways: Scattered foci of groundglass opacities predominantly within the perihilar regions and lower lobes, intermixed with areas of relative lucency, likely related to air trapping. No airspace consolidation, bronchiectasis, suspicious nodule, or gross fibrotic change. Trachea, mainstem bronchi, and central lobar and segmental bronchi are patent. Pleura: The pleural spaces are clear. Heart and mediastinum: The visualized portions of the thyroid gland are normal. No axillary, hilar, or mediastinal lymphadenopathy. No ectasia or aneurysmal dilatation of the thoracic aorta. Pulmonary outflow tract is of normal caliber. Atherosclerotic calcification of the [place] coronary arteries. No pericardial effusion. Soft tissues: No focal soft tissue abnormalities area Abdomen: Visualized portions of the liver, spleen, pancreas, and adrenal glands are normal. Bones: No osseous destructive lesions. IMPRESSION: No acute thoracic CT abnormalities. Dependent subsegmental atelectasis with scattered foci of air trapping. Dictated by: Ino Ochoa M.D. on 06/11/2018 at 10:38 Electronically approved by: Ino Ochoa M.D. on 06/11/2018 at 10:38
== END ==
LOC: CT 09:01
PROVIDERS: ATTEND Internal Medicine Critical Care Medicine
DX: J30.9 Allergic rhinitis, unspecified (principal); I27.9 Pulmonary heart disease, unspecified; K21.9 Gastro-esophageal reflux disease without esophagitis; J45.20 Mild intermittent asthma, uncomplicated; F41.1 Generalized anxiety disorder; R49.8 Other voice and resonance disorders; R91.8 Other nonspecific abnormal finding of lung field
CPT/HCPCS: 71250

== ENCOUNTER → 2018-10-01 | Outpatient (CLI) | payer BC | LOC: SLEEP 20:18 | PROVIDERS: ATTEND Internal Medicine | DX: G47.33 Obstructive sleep apnea (adult) (pediatric) (principal) | CPT/HCPCS: 95810 ==

== ENCOUNTER 2018-10-15 09:56 | Emergency (ER) | payer BC ==
[~2018-10-15] VITALS: Ht 168.9 cm; Wt 124.7 kg
--- OUTSIDE RECORDS SUMMARY | 2018-10-15 10:01 | XMS REPORT | Continuity of Care Document ---
Author Author [facility] Interface Address Unknown Phone Unavailable Problems Problem Status Onset Date Classification Date Reported Comments Source SCREENINGNO PAIN,LUMPS OR DC Active 05/16/2018 [facility] Shortness of breath 01/03/2018 04/03/2018 [facility] SOB Active 12/26/2017 [facility] SCREENING Active 06/27/2013 [facility] Unspecified asthma, uncomplicated 04/03/2018 [facility] 786.05 Active [facility] Medications Medication Details Route Status Patient Instructions Ordering Provider Order Date Source Allergies, Adverse Reactions, Alerts Substance Category Reaction Severity Reaction type Status Date Reported Comments Source lisinopril drug allergy Allergy [facility] Levaquin drug allergy Allergy [facility] Immunizations Immunization Date Given Site Status Last Updated Comments Source Results Order Name Results Value Reference Range Date Interpretation Comments Source Breast Mammo Scrn DEJA incl CAD MA Breast Mammo Scrn DEJA incl CAD MA BILATERAL DIGITAL SCREENING MAMMOGRAM WITH CAD: 05/16/2018 CLINICAL: /Routine. Current study was evaluated with a Computer Aided Detection (CAD) system. COMPARISON:Comparison is made to exams dated: 07/03/2013 mammogram, 10/19/2010 mammogram, 10/12/2009 mammogram, 11/27/2008 mammogram, 11/05/2008 mammogram, and 07/12/2007 mammogram - [facility]. TECHNIQUE: Mammographic views were obtained using digital acquisition. LifeD[employer]ov[employer] Version 1.3 was utilized for computer aided detection. FINDINGS: There are scattered fibroglandular densities in both breasts. New left cardiac device/pacemaker is present. Prior medial cardiac device has been removed in the interim with associated scarring/densities. There are benign vascular calcifications and calcifications in both breasts. No significant masses, calcifications, or other findings are seen in either breast. There has been no significant interval change. IMPRESSION: BENIGN RECOMMENDATION:There is no mammographic evidence of malignancy. A 1 year screening mammogram is recommended.(05/17/2019) This exam was interpreted at [id number] for [facility] [place]. Krystian vo/penrad:05/17/2018 08:01:57 Perforating Machine Operator(s): Adriana Tapia, [facility] letter sent: BI-RADS 1/2 Mammogram BI-RADS: 2 Benign 05/16/2018 - - Read by: Krystian Villafuerte MD Dictated Date/time: 05/17/18 08:01 Electronically Signed by: Krystian Villafuerte MD 05/17/18 08:01 FINAL REPORT [facility] Chest 2 views DX Chest 2 views DX Clinical Indication: - sob ; hx of asthma Comparison: May 10, 2011 FINDINGS: The PA and lateral chest radiographs shows normal lung volumes without interstitial or airspace opacities, pleural effusions or pneumothorax. There is left breast device identified. The heart size and pulmonary vasculature are normal. The trachea is midline. There are no clinically significant osseous abnormalities noted. IMPRESSION: No chest radiographic evidence of acute cardiopulmonary disease. SL: [id number] 12/26/2017 - - Read by: Alen Newman MD Dictated Date/time: 12/26/17 13:24 Electronically Signed by: Alen Newman MD 12/26/17 13:25 FINAL REPORT [facility] Digital Mammo Screening Deja MA Digital Mammo Screening Deja MA - DIGITAL MAMMO SCREENING DEJA MA BILATERAL DIGITAL SCREENING MAMMOGRAM WITH CAD: 07/03/2013 CLINICAL: Routine. Current study was evaluated with a Computer Aided Detection (CAD) system. Comparison is made to exams dated: 10/19/2010 mammogram, 10/12/2009 mammogram, 11/27/2008 mammogram, 11/05/2008 mammogram and 07/12/2007 mammogram - [facility]. There are scattered fibroglandular elements in both breasts that could obscure a lesion on mammography. There are benign vascular calcifications and calcifications in both breasts. There also are new metallic objects in the left breast in the posterior depth in the medial aspect. No significant masses, calcifications, or other findings are seen in either breast. There has been no significant interval change. IMPRESSION: BENIGN There is no mammographic evidence of malignancy. A screening mammogram in one year is recommended. Krystian vo/penrad:07/04/2013 08:52:02 Perforating Machine Operator: Leslee Aranda, [facility] This exam was dictated and interpreted by [id number] at [facility] [place] 13. letter sent: Normal exam Mammogram BI-RADS: 2 Benign 07/03/2013 - - Read by: Krystian Villafuerte Dictated Date/time: 07/04/13 08:52 Electronically Signed by: Krystian Villafuerte MD 07/04/13 08:52 FINAL REPORT [facility] CHEMISTRY Hgb A1C 6.0 % 06/28/2011 NA 1Interpretive Data: HbA1C% eAG(mg/dL) Interpretation 6.0 126 Very good control 6.5 140 Very good control 7.0 154 Good Control 7.5 169 Good Control 8.0 183 Marginal Control, take action to lower 8.5 197 Marginal Control, take action to lower 9.0 212 Poor Control, take action to lower 9.5 226 Poor Control, take action to lower10.0 240 Poor Control, take action to lower [facility] HEMATOLOGY Basophils # 0.0 K/CMM 0.0 - 0.2 06/28/2011 Normal [facility] HEMATOLOGY Eosinophils # 0.1 K/CMM 0.0 - 0.5 06/28/2011 Normal [facility] HEMATOLOGY Monocytes # 0.5 K/CMM 0.0 - 0.8 06/28/2011 Normal [facility] HEMATOLOGY Segs-Bands # 6.1 K/CMM 1.5 - 8.1 06/28/2011 Normal [facility] HEMATOLOGY Lymphocytes # 1.7 K/CMM 1.0 - 5.5 06/28/2011 Normal [facility] Monocytes 5.7 % 2.0 - 12.0 06/28/2011 Normal [facility] HEMATOLOGY Segs 72.2 % 45.0 - 75.0 06/28/2011 Normal [facility] HEMATOLOGY Eosinophils 1.2 % 0.0 - 4.0 06/28/2011 Normal [facility] HEMATOLOGY Lymphocytes 20.5 % 20.0 - 40.0 06/28/2011 Normal [facility] HEMATOLOGY Basophils 0.4 % 0.0 - 1.0 06/28/2011 Normal [facility] HEMATOLOGY MCH 28.7 pg 27.0 - 31.0 06/28/2011 Normal [facility] HEMATOLOGY MCV 84.8 fL 81.0 - 99.0 06/28/2011 Normal [facility] HEMATOLOGY Platelet 250.0 K/CMM 133 - 450 06/28/2011 Normal [facility] HEMATOLOGY MPV 9.3 fL 7.4 - 10.4 06/28/2011 Normal [facility] HEMATOLOGY MCHC 33.9 g/dL 32.0 - 36.0 06/28/2011 Normal [facility] HEMATOLOGY RDW 13.8 % 11.5 - 14.5 06/28/2011 Normal [facility] HEMATOLOGY Hct 38.4 % 36.0 - 48.0 06/28/2011 Normal [facility] HEMATOLOGY RBC 4.53 M/CMM 4.20 - 5.40 06/28/2011 Normal [facility] HEMATOLOGY Hgb 13.0 g/dL 12.0 - 16.0 06/28/2011 Normal [facility] HEMATOLOGY WBC 8.4 K/CMM 3.7 - 10.4 06/28/2011 Normal [facility] IMMUNOLOGY IgE Lvl 64.7 [iU]/mL 10.0 - 100.0 06/28/2011 Normal [facility] Vital Signs Vital Sign Value Date Comments Source Encounters Location Location Details Encounter Type Encounter Number Reason For Visit Attending Provider ADM Date DC Date Status Source [facility] Outpatient [id number] 786.05 BYRCE MCKEON 06/28/2011 Active [facility] Outpatient [id number] SCREENING CHRIS CALDERON 07/03/2013 07/03/2013 Active [facility] Outpatient [id number] Chris Calderon 12/26/2017 12/27/2017 [facility] Procedures Procedure Code Date Perfomer Comments Source
--- OUTSIDE RECORDS SUMMARY | 2018-10-15 10:01 | XMS REPORT | Summary of Care ---
Author Author [facility] Organization [facility] Address Unknown Phone Unavailable Encounter HQ Encntr_alijennifer(FIN) [id number] Date(s): 12/26/17 - 12/26/17 [facility] [address] [place] [address]- Encounter Diagnosis Shortness of breath (Final) - 01/02/18 Unspecified asthma, uncomplicated (Final) - Discharge Disposition: Home or Self Care Attending Physician: Katherine Calderon MD Vital Signs No data available for this section Problem List No data available for this section Allergies, Adverse Reactions, Alerts Substance Reaction Severity Status lisinopril Active Levaquin Active Medications No data available for this section Results No data available for this section Immunizations No data available for this section Procedures No data available for this section Social History No data available for this section Assessment and Plan No data available for this section
--- OUTSIDE RECORDS SUMMARY | 2018-10-15 10:01 | XMS REPORT | Summary of Care ---
Author Author [facility] Organization [facility] Address Unknown Phone Unavailable Encounter HQ Encntr_alias(FIN) [id number] Date(s): 12/26/17 - 12/26/17 [facility] [address] [place] [address]- [phone] Discharge Disposition: Home or Self Care Attending [...]
--- OUTSIDE RECORDS SUMMARY | 2018-10-15 10:01 | XMS REPORT | CCD ---
Author Author Auto Generated Organization [facility] Address Unknown Phone Unavailable Care Team Providers Care Transmission Superintendent Name Role Phone Katherine Calderon RP Allergies, Adverse Reactions, Alerts Substance Reaction Status Levaquin Active lisinopril Active
--- OUTSIDE RECORDS SUMMARY | 2018-10-15 10:01 | XMS REPORT | CCD ---
Author Author Auto Generated Organization [facility] Address Unknown Phone Unavailable Care Team Providers Care Solid Die Cutter Name Role Phone Katherine Caldeorn RP Allergies, Adverse Reactions, Alerts Substance Reaction Status Levaquin Active lisinopril Active
--- OUTSIDE RECORDS SUMMARY | 2018-10-15 10:01 | XMS REPORT | CCD ---
Author Author Auto Generated Organization [facility] Address Unknown Phone Unavailable Care Team Providers Care Farm Worker Name Role Phone aKtherine Calderon RP Allergies, Adverse Reactions, Alerts Substance Reaction Status Levaquin Active lisinopril Active
--- OUTSIDE RECORDS SUMMARY | 2018-10-15 10:01 | XMS REPORT | CCD ---
Author Author Auto Generated Organization [facility] Address Unknown Phone Unavailable Care Team Providers Care Hand Bunch Maker Name Role Phone Katherine Calderon RP Allergies, Adverse Reactions, Alerts Substance Reaction Status Levaquin Active lisinopril Active
--- OUTSIDE RECORDS SUMMARY | 2018-10-15 10:01 | XMS REPORT | CCD ---
Author Author Auto Generated Organization [facility] Address Unknown Phone Unavailable Care Team Providers Care Textile Pin Worker Name Role Phone ChartServer, Login CP Unavailable Karly Bell CP Unavailable Anne Todd CP Unavailable SYSTEM, SYSTEM CP Unavailable Katherine Calderon CP Ellie Gonsalez CP [phone] Alvaro Bravo RP Allergies, Adverse Reactions, Alerts Substance Reaction Status Levaquin ?? Active lisinopril ?? Active Results CHEMISTRY Most recent to oldest [Reference Range]: 1 Hgb A1C 6.0 % 1 *NA* (06/28/2011 10:49:00) ?? 1Interpretive Data: HbA1C% eAG(mg/dL) Interpretation 6.0 126 Very good control 6.5 140 Very good control 7.0 154 Good Control 7.5 169 Good Control 8.0 183 Marginal Control, take action to lower 8.5 197 Marginal Control, take action to lower 9.0 212 Poor Control, take action to lower 9.5 226 Poor Control, take action to lower10.0 240 Poor Control, take action to lower HEMATOLOGY Most recent to oldest [Reference Range]: 1 WBC [3.7-10.4 K/CMM] 8.4 K/CMM (06/28/2011 10:49:00) ?? RBC [4.20-5.40 M/CMM] 4.53 M/CMM (06/28/2011 10:49:00) ?? Hgb [12.0-16.0 g/dL] 13.0 g/dL (06/28/2011 10:49:00) ?? Hct [36.0-48.0 %] 38.4 % (06/28/2011 10:49:00) ?? MCV [81.0-99.0 fL] 84.8 fL (06/28/2011 10:49:00) ?? MCH [27.0-31.0 pg] 28.7 pg (06/28/2011 10:49:00) ?? MCHC [32.0-36.0 g/dL] 33.9 g/dL (06/28/2011 10:49:00) ?? RDW [11.5-14.5 %] 13.8 % (06/28/2011 10:49:00) ?? Platelet [133-450 K/CMM] 250 K/CMM (06/28/2011 10:49:00) ?? MPV [7.4-10.4 fL] 9.3 fL (06/28/2011 10:49:00) ?? Segs [45.0-75.0 %] 72.2 % (06/28/2011 10:49:00) ?? Lymphocytes [20.0-40.0 %] 20.5 % (06/28/2011 10:49:00) ?? Monocytes [2.0-12.0 %] 5.7 % (06/28/2011 10:49:00) ?? Eosinophils [0.0-4.0 %] 1.2 % (06/28/2011 10:49:00) ?? Basophils [0.0-1.0 %] 0.4 % (06/28/2011 10:49:00) ?? Segs-Bands # [1.5-8.1 K/CMM] 6.1 K/CMM (06/28/2011 10:49:00) ?? Lymphocytes # [1.0-5.5 K/CMM] 1.7 K/CMM (06/28/2011 10:49:00) ?? Monocytes # [0.0-0.8 K/CMM] 0.5 K/CMM (06/28/2011 10:49:00) ?? Eosinophils # [0.0-0.5 K/CMM] 0.1 K/CMM (06/28/2011 10:49:00) ?? Basophils # [0.0-0.2 K/CMM] 0.0 K/CMM (06/28/2011 10:49:00) ?? IMMUNOLOGY Most recent to oldest [Reference Range]: 1 IgE Lvl [10.0-100.0 IU/mL] 64.7 IU/mL (06/28/2011 10:49:00) ??
[2018-10-15] MEDS ORDERED: LORAZEPAM INJ 2 MG/ML VIAL IV ONE (10:15)
[2018-10-15] MEDS ORDERED: ASPIRIN 325 MG TAB PO ONE (10:15)
[2018-10-15] MEDS ORDERED: NITROGLYCERIN 0.4 MG SUBL SL ONE (10:15)
[2018-10-15 10:29] LABS: BASOPHILS % 0.3 % (0.0-1.0); EOSINOPHILS # (AUTO) 0.1 (0.0-0.4); EOSINOPHILS % 1.9 % (0.0-6.0); HEMATOCRIT 37.6 % (34.2-44.1); LYMPHOCYTES # (AUTO) 1.5 (1.0-3.2); LYMPHOCYTES % 24.8 % (18.0-39.1); MEAN CORPUSCULAR HEMOGLOBIN 27.2 pg (28-32); MEAN CORPUSCULAR HGB CONC 31.9 g/dL (31-35); MEAN CORPUSCULAR VOLUME 85.3 fL (81-99); MONOCYTES # (AUTO) 0.4 (0.2-0.8); MONOCYTES % 6.4 % (4.4-11.3); NEUTROPHILS # (AUTO) 4.1 (2.1-6.9); NEUTROPHILS % 66.1 % (38.7-80.0); PLATELET COUNT 226 x10e3/uL (140-360); RED BLOOD COUNT 4.41 x10e6/uL (3.6-5.1); RED CELL DISTRIBUTION WIDTH 13.7 % (11.7-14.4)
[2018-10-15 10:52] LABS: ALANINE AMINOTRANSFERASE 22 IU/L (0-55); ALBUMIN 3.8 g/dL (3.5-5.0); ALBUMIN/GLOBULIN RATIO 1.2 (0.8-2.0); ALKALINE PHOSPHATASE 76 IU/L (40-150); ANION GAP 15.1 mmol/L (8-16); BLOOD UREA NITROGEN 19 mg/dL (7-26); BUN/CREATININE RATIO 23 (6-25); CALCIUM 9.7 mg/dL (8.4-10.2); CARBON DIOXIDE 24 mmol/L (22-29); CHLORIDE 103 mmol/L (98-107); CREATININE, SERUM 0.84 mg/dL (0.57-1.11); EST GLOMERULAR FILTRATION RATE > 60 ML/MIN (60-); GLUCOSE 119 mg/dL (74-118); POTASSIUM 4.1 mmol/L (3.5-5.1); SODIUM 138 mmol/L (136-145)
--- NOTE | 2018-10-15 11:11 | Diagnostic Imaging Report ---
Examination: Single AP view of the chest. COMPARISON: None. INDICATION: Chest pain DISCUSSION: The lungs are well-inflated. No focal airspace consolidation, pleural effusion, or pneumothorax. Left subclavian approach implantable cardiac device body projects over the left lateral chest wall. These project over the expected regions of the right atrium and right ventricle. Normal heart size and pulmonary vasculature for technique. Tortuous thoracic aorta. No acute osseous abnormality. IMPRESSION: 1. No acute cardiopulmonary abnormalities. Signed by: Dr. Ino Ochoa M.D. on 10/15/2018 11:08 AM
[2018-10-15 13:47] VITALS: BP 139/67
== END 2018-10-15 14:00 | disposition home or self-care (01) ==
LOC: ER 10:02
DX: R07.89 Other chest pain (principal); I10 Essential (primary) hypertension; I25.10 Atherosclerotic heart disease of native coronary artery without angina pectoris
CPT/HCPCS: 36415; 71045; 80053; 83880; 84484; 85025; 93005; 99283; J2060

== ENCOUNTER → 2018-11-09 | Day surgery (SDC) | payer BC ==
[~2018-11-09] MED LIST changes: +FENTANYL CITRATE/PF 100MCG/2 ML INJ ONE; +LIDOCAINE HCL 2% LOCAL INJ 5 ML SDV VIAL INJ ONE; +MIDAZOLAM HCL 2 MG/2 ML VIAL ONE; +PROPOFOL IV EMULSION 10 MG/ML 20 ML VIAL ONE; +SYMBICORT 16010.2 GM INH; +XOPENEX0.63 MG/3 INH
[2018-11-09 16:40] VITALS: BP 139/66
== END | disposition home or self-care (01) ==
LOC: OR 12:46
PROVIDERS: ATTEND Surgery
DX: K29.70 Gastritis, unspecified, without bleeding (principal); K21.9 Gastro-esophageal reflux disease without esophagitis; R07.9 Chest pain, unspecified; Z01.810 Encounter for preprocedural cardiovascular examination; Z01.812 Encounter for preprocedural laboratory examination; Z01.811 Encounter for preprocedural respiratory examination; Z95.0 Presence of cardiac pacemaker; E66.01 Morbid (severe) obesity due to excess calories; I10 Essential (primary) hypertension; J45.909 Unspecified asthma, uncomplicated; Z88.1 Allergy status to other antibiotic agents; Z88.8 Allergy status to other drugs, medicaments and biological substances
CPT/HCPCS: 43235; J2001; J2250; J2704

== ENCOUNTER → 2019-08-19 | Outpatient (CLI) | payer BC ==
[~2019-08-19] MED LIST changes: -FENTANYL CITRATE/PF 100MCG/2 ML INJ ONE; -LIDOCAINE HCL 2% LOCAL INJ 5 ML SDV VIAL INJ ONE; -MIDAZOLAM HCL 2 MG/2 ML VIAL ONE; -PROPOFOL IV EMULSION 10 MG/ML 20 ML VIAL ONE
== END ==
LOC: MAMMO 14:27
PROVIDERS: ATTEND Family Medicine
DX: Z12.31 Encounter for screening mammogram for malignant neoplasm of breast (principal)
CPT/HCPCS: 77067

== ENCOUNTER 2019-11-30 12:38 | Emergency (ER) | payer BC ==
[~2019-11-30] VITALS: Ht 168.9 cm; Wt 124.7 kg
[~2019-11-30 12:38] MED LIST changes: +AZITHROMYCIN250 MG PO
[2019-11-30] MEDS: LEVALBUTEROL HCL SOLN NEBU 0.63 MG/3 ML NEB INH ONE (13:05)
[2019-11-30] MEDS: IPRATROPIUM BROMIDE 0.02% 2.5 ML NEB NEB ONE (13:05)
[2019-11-30] MEDS ORDERED: ALBUTEROL/IPRATROPIUM 3 ML NEB ONE (13:21)
[2019-11-30 13:22] LABS: BASOPHILS % 0.3 % (0.0-1.0); EOSINOPHILS # (AUTO) 0.1 (0.0-0.4); EOSINOPHILS % 1.6 % (0.0-6.0); HEMATOCRIT 39.3 % (34.2-44.1); HEMOGLOBIN 12.5 g/dL (12.0-16.0); LYMPHOCYTES # (AUTO) 2.1 (1.0-3.2); LYMPHOCYTES % 30.4 % (18.0-39.1); MEAN CORPUSCULAR HEMOGLOBIN 27.4 pg (28-32); MEAN CORPUSCULAR HGB CONC 31.8 g/dL (31-35); MEAN CORPUSCULAR VOLUME 86.2 fL (81-99); MONOCYTES # (AUTO) 0.5 (0.2-0.8); MONOCYTES % 6.5 % (4.4-11.3); NEUTROPHILS # (AUTO) 4.3 (2.1-6.9); NEUTROPHILS % 60.9 % (38.7-80.0); PLATELET COUNT 235 x10e3/uL (140-360); RED BLOOD COUNT 4.56 x10e6/uL (3.6-5.1); RED CELL DISTRIBUTION WIDTH 13.7 % (11.7-14.4)
[2019-11-30 13:31] LABS: INR 0.95; PROTHROMBIN TIME 13.2 seconds (11.9-14.5)
[2019-11-30 13:32] LABS: PARTIAL THROMBOPLASTIN TIME 29.1 seconds (23.8-35.5)
[2019-11-30 13:39] LABS: ALANINE AMINOTRANSFERASE 28 IU/L (0-55); ALBUMIN 4.1 g/dL (3.5-5.0); ALBUMIN/GLOBULIN RATIO 1.1 (0.8-2.0); ALKALINE PHOSPHATASE 85 IU/L (40-150); ANION GAP 10.7 mmol/L (8-16); BLOOD UREA NITROGEN 17 mg/dL (7-26); BUN/CREATININE RATIO 21 (6-25); CALCIUM 10.1 mg/dL (8.4-10.2); CARBON DIOXIDE 28 mmol/L (22-29); CHLORIDE 102 mmol/L (98-107); CREATINE KINASE 49 IU/L (29-168); EST GLOMERULAR FILTRATION RATE > 60 ML/MIN (60-); GLUCOSE 157 mg/dL (74-118); MAGNESIUM 1.8 MG/DL (1.3-2.1); POTASSIUM 3.7 mmol/L (3.5-5.1); SODIUM 137 mmol/L (136-145)
--- NOTE | 2019-11-30 13:54 | Diagnostic Imaging Report ---
Examination: Single AP view of the chest. COMPARISON: Portable chest 09/22/2019 INDICATION: Shortness of breath IMPRESSION: Limited exam due to low lung volumes 1. Lines and Tubes: Stable left upper chest dual lead cardiac device. 2. Hypoinflated lungs. No consolidation or effusion. 3. Cardiomediastinal silhouette is normal. Central vascular crowding due to low lung volumes. 4. No acute bony abnormalities. Signed by: Dr. Kiet Soto M.D. on 11/30/2019 1:51 PM
[2019-11-30] MEDS: PREDNISONE 20 MG TAB PO ONE (16:04)
[2019-11-30 16:23] VITALS: BP 119/74
== END 2019-11-30 16:26 | disposition home or self-care (01) ==
LOC: ER 12:38
DX: R06.00 Dyspnea, unspecified (principal); J45.31 Mild persistent asthma with (acute) exacerbation; I10 Essential (primary) hypertension; I25.10 Atherosclerotic heart disease of native coronary artery without angina pectoris; Z95.810 Presence of automatic (implantable) cardiac defibrillator
CPT/HCPCS: 36415; 71045; 80053; 82550; 82553; 83735; 83880; 84484; 85025; 85610; 85730; 93005; 94760; 99284; J7512

== ENCOUNTER → 2020-01-29 | Outpatient (CLI) | payer BC ==
[~2020-01-29] MED LIST changes: +IOPAMIDOL 370 MG/ML 200 ML INFUS..BTL INJ ONE; +SODIUM CHLORIDE 0.9% 50ML 50 ML ONE
[2020-01-29 16:34] LABS: BASOPHILS % 0.3 % (0.0-1.0); EOSINOPHILS # (AUTO) 0.1 (0.0-0.4); EOSINOPHILS % 2.3 % (0.0-6.0); HEMATOCRIT 38.5 % (34.2-44.1); LYMPHOCYTES # (AUTO) 1.9 (1.0-3.2); LYMPHOCYTES % 30.9 % (18.0-39.1); MEAN CORPUSCULAR HEMOGLOBIN 26.8 pg (28-32); MEAN CORPUSCULAR HGB CONC 31.2 g/dL (31-35); MEAN CORPUSCULAR VOLUME 85.9 fL (81-99); MONOCYTES # (AUTO) 0.4 (0.2-0.8); MONOCYTES % 6.9 % (4.4-11.3); NEUTROPHILS # (AUTO) 3.6 (2.1-6.9); NEUTROPHILS % 59.3 % (38.7-80.0); PLATELET COUNT 248 x10e3/uL (140-360); RED BLOOD COUNT 4.48 x10e6/uL (3.6-5.1); RED CELL DISTRIBUTION WIDTH 13.2 % (11.7-14.4)
[2020-01-29 16:49] LABS: ALANINE AMINOTRANSFERASE 26 IU/L (0-55); ALBUMIN 3.6 g/dL (3.5-5.0); ALKALINE PHOSPHATASE 89 IU/L (40-150); ANION GAP 12.8 mmol/L (8-16); BLOOD UREA NITROGEN 13 mg/dL (7-26); BUN/CREATININE RATIO 17 (6-25); CALCIUM 9.4 mg/dL (8.4-10.2); CARBON DIOXIDE 23 mmol/L (22-29); CHLORIDE 105 mmol/L (98-107); CREATININE, SERUM 0.78 mg/dL (0.57-1.11); EST GLOMERULAR FILTRATION RATE > 60 ML/MIN (60-); GLUCOSE 192 mg/dL (74-118); POTASSIUM 3.8 mmol/L (3.5-5.1); SODIUM 137 mmol/L (136-145)
[2020-01-29 17:00] LABS: B-TYPE NATRIURETIC PEPTIDE2 96.6 pg/mL (0-100)
--- NOTE | 2020-01-29 17:34 | Diagnostic Imaging Report ---
EXAM: CT Chest WITH contrast (PE Protocol) INDICATION: ^[id number] ^1700 ^SEVERE SOB COMPARISON: CT dated 06/11/2018 TECHNIQUE: Chest was scanned utilizing a multidetector helical scanner from the lung apex through the level of the diaphragm after administration of IV contrast. Thin section reconstructions were obtained with special concentration on the pulmonary arteries. Coronal and sagittal reformations were obtained. Dose modulation, iterative reconstruction, and/or weight based adjustment of the mA/kV was utilized to reduce the radiation dose to as low as reasonably achievable. Pulmonary embolism protocol was performed. IV CONTRAST: 100 mL of Isovue-370 COMPLICATIONS: None RADIATION DOSE: Total DLP: 613.88 mGy*cm Estimated effective dose: (DLP x 0.014 x size factor) mSv CTDIvol has been reviewed. It is below the limits set by the Radiation Protocol Committee (RPC). FINDINGS: LINES/ TUBES: Left chest wall dual-lead cardiac device in place with distal leads terminating in right atrium and right ventricle. LUNGS AND AIRWAYS: No filling defect is identified within the pulmonary arteries to the segmental level. 5 mm left lower lobe have fissural lymph node or nodule (series 3, image 56), unchanged. 3 mm posterior left lower lobe nodule (3/58), unchanged. Unchanged left lower lobe 3 mm nodule (3/77). Subtle peripheral right lower lobe areas of groundglass haziness such as in series 3, image 53. Airways are normal. PLEURA: The pleural spaces are clear. HEART AND MEDIASTINUM: The thyroid gland is normal. No mediastinal, hilar or axillary lymphadenopathy. The heart is borderline in size.. There is no pericardial effusion. . Main pulmonary artery measures 2.7 cm in diameter and the ascending aorta measures 4.2 cm. UPPER ABDOMEN: Hepatic steatosis. Atrophic pancreas. BONES: The visualized bony thorax is within normal limits. SOFT TISSUES: Unremarkable. IMPRESSION: No pulmonary emboli. Few small foci of peripheral right lower lobe groundglass haziness, could represent subsegmental atelectasis versus developing infectious process in the appropriate clinical context. Few nonspecific tiny lung nodules. Without risk factors, no follow-up is necessary. With risk factors, follow-up with low-dose chest CT in one year is optional. Ectatic ascending thoracic aorta. Signed by: Dr. Vamsi Aguayo MD on 01/29/2020 5:24 PM
== END ==
LOC: CT 16:01
PROVIDERS: ATTEND Internal Medicine Cardiovascular Disease
DX: R06.02 Shortness of breath (principal)
CPT/HCPCS: 36415; 71260; 80053; 83036; 83880; 84484; 85025; Q9967

== ENCOUNTER → 2020-04-13 | Outpatient (CLI) | payer BC ==
[~2020-04-13] MED LIST changes: -IOPAMIDOL 370 MG/ML 200 ML INFUS..BTL INJ ONE; -SODIUM CHLORIDE 0.9% 50ML 50 ML ONE
[2020-04-13 13:02] LABS: BASOPHILS % 0.3 % (0.0-1.0); EOSINOPHILS # (AUTO) 0.1 (0.0-0.4); EOSINOPHILS % 1.9 % (0.0-6.0); HEMATOCRIT 39.9 % (34.2-44.1); HEMOGLOBIN 12.4 g/dL (12.0-16.0); LYMPHOCYTES # (AUTO) 1.8 (1.0-3.2); LYMPHOCYTES % 25.1 % (18.0-39.1); MEAN CORPUSCULAR HEMOGLOBIN 26.6 pg (28-32); MEAN CORPUSCULAR HGB CONC 31.1 g/dL (31-35); MEAN CORPUSCULAR VOLUME 85.4 fL (81-99); MONOCYTES # (AUTO) 0.4 (0.2-0.8); MONOCYTES % 6.1 % (4.4-11.3); NEUTROPHILS # (AUTO) 4.8 (2.1-6.9); NEUTROPHILS % 66.2 % (38.7-80.0); PLATELET COUNT 252 x10e3/uL (140-360); RED BLOOD COUNT 4.67 x10e6/uL (3.6-5.1); RED CELL DISTRIBUTION WIDTH 13.6 % (11.7-14.4)
[2020-04-13 13:26] LABS: ALANINE AMINOTRANSFERASE 29 IU/L (0-55); ALBUMIN 3.7 g/dL (3.5-5.0); ALKALINE PHOSPHATASE 92 IU/L (40-150); ANION GAP 16.8 mmol/L (8-16); BLOOD UREA NITROGEN 18 mg/dL (7-26); BUN/CREATININE RATIO 20 (6-25); CALCIUM 10.1 mg/dL (8.4-10.2); CARBON DIOXIDE 24 mmol/L (22-29); CHLORIDE 103 mmol/L (98-107); CHOL/HDL RATIO 3.8 (3.0-3.6); CHOLESTEROL 126 MD/DL (0-199); CREATININE, SERUM 0.92 mg/dL (0.57-1.11); EST GLOMERULAR FILTRATION RATE > 60 ML/MIN (60-); GLUCOSE 163 mg/dL (74-118); HDL CHOLESTEROL 33 MG/DL (40-60); LDL CHOLESTEROL 63 MG/DL (60-130); POTASSIUM 4.8 mmol/L (3.5-5.1); SODIUM 139 mmol/L (136-145); TRIGLYCERIDES 149 MG/DL (0-149)
[2020-04-13 13:45] LABS: THYROID STIMULATING HORMONE 2.088 uIU/mL (0.350-4.940)
== END ==
LOC: LAB 12:35
PROVIDERS: ATTEND Internal Medicine Cardiovascular Disease
DX: I25.10 Atherosclerotic heart disease of native coronary artery without angina pectoris (principal); E11.9 Type 2 diabetes mellitus without complications; I10 Essential (primary) hypertension; E78.00 Pure hypercholesterolemia, unspecified
CPT/HCPCS: 36415; 80053; 80061; 83036; 84443; 85025

== ENCOUNTER 2020-09-19 11:35 | Emergency (ER) | payer BC, OTHER ==
[~2020-09-19] VITALS: Ht 167.6 cm; Wt 124.7 kg
[2020-09-19] MEDS ORDERED: BAMLANIVIMAB IV SCH (18:30)
== END 2020-09-19 23:23 | disposition home or self-care (01) ==
LOC: ER 11:52
DX: U07.1 COVID-19 (principal); R50.9 Fever, unspecified; R05 Cough; R06.02 Shortness of breath; I10 Essential (primary) hypertension; I25.10 Atherosclerotic heart disease of native coronary artery without angina pectoris; E03.9 Hypothyroidism, unspecified; Z95.810 Presence of automatic (implantable) cardiac defibrillator
CPT/HCPCS: 71045; 99284; U0002

== ENCOUNTER → 2021-04-01 | Outpatient (CLI) | payer OTHER | LOC: MAMMO 14:30 | PROVIDERS: ATTEND Family Medicine | DX: Z12.31 Encounter for screening mammogram for malignant neoplasm of breast (principal) | CPT/HCPCS: 77067 ==

== ENCOUNTER → 2022-07-29 | Outpatient (CLI) | payer BC | LOC: MAMMO 13:45 | PROVIDERS: ATTEND Family Medicine | DX: Z12.31 Encounter for screening mammogram for malignant neoplasm of breast (principal) | CPT/HCPCS: 77067 ==

== ENCOUNTER → 2023-10-10 | Outpatient (REF) | payer BC | LOC: MAMMO 11:48 | PROVIDERS: ATTEND Family Medicine | DX: Z12.31 Encounter for screening mammogram for malignant neoplasm of breast (principal) | CPT/HCPCS: 77067 ==

== ENCOUNTER → 2024-05-29 | Outpatient (REF) | payer BC ==
[~2024-05-29] MED LIST changes: +LEVOTHYROXINE50 MCG PO; +LOSARTAN POTASS25 MG PO; +METOPROLOL SUCC25 MG PO; +PLAVIX75 MG PO; +REGADENOSON 0.4 MG/5 ML SYR IV ONE
== END ==
LOC: NM 06:28
PROVIDERS: ATTEND Internal Medicine Cardiovascular Disease
DX: I25.118 Atherosclerotic heart disease of native coronary artery with other forms of angina pectoris (principal); R06.02 Shortness of breath; Z78.9 Other specified health status; R94.31 Abnormal electrocardiogram [ECG] [EKG]
CPT/HCPCS: 78452; 93017; A9502; J2785

== ENCOUNTER 2024-06-04 12:30 | Observation (INO) | payer BC ==
[~2024-06-04] VITALS: Ht 167.6 cm; Wt 137.0 kg
[2024-06-04] VITALS (10 sets, daily range): BP systolic 128–148; BP diastolic 67–93; PULSE 65–82; RESP 14–20; TEMP 97.7–98.1; O2SAT 94–98
[2024-06-04 09:26] LABS: BASOPHILS % 0.5 % (0.0-1.0); EOSINOPHILS # (AUTO) 0.2 (0.0-0.4); EOSINOPHILS % 2.8 % (0.0-6.0); HEMATOCRIT 38.5 % (34.2-44.1); LYMPHOCYTES # (AUTO) 1.5 (1.0-3.2); LYMPHOCYTES % 24.4 % (18.0-39.1); MEAN CORPUSCULAR HEMOGLOBIN 27.3 pg (28-32); MEAN CORPUSCULAR HGB CONC 31.2 g/dL (31-35); MEAN CORPUSCULAR VOLUME 87.5 fL (81-99); MONOCYTES # (AUTO) 0.5 (0.2-0.8); MONOCYTES % 7.8 % (4.4-11.3); NEUTROPHILS # (AUTO) 3.8 (2.1-6.9); NEUTROPHILS % 63.8 % (38.7-80.0); PLATELET COUNT 218 x10e3/uL (140-360); RED CELL DISTRIBUTION WIDTH 14.1 % (11.7-14.4); WHITE BLOOD COUNT 5.99 x10e3/uL (4.8-10.8)
[2024-06-04 09:30] LABS: ANION GAP 14.1 mmol/L (8-16); CALCIUM 9.3 mg/dL (8.4-10.2); CREATININE, SERUM 0.77 mg/dL (0.57-1.11); POTASSIUM 4.1 mmol/L (3.5-5.1)
[~2024-06-04 12:30] MED LIST changes: +ATORVASTATIN CA20 MG PO; +BUPIVACAINE HCL 0.5% INJ 30 ML VIAL INJ ONE; +MUPIROCIN 2% OINT 22 GM TUBE ONE; +PHENYLEPHRINE HCL 1% 10 MG/ML VIAL ONE; -REGADENOSON 0.4 MG/5 ML SYR IV ONE; +SUGAMMADEX SODIUM 200 MG/2 ML VIAL IV ONE; +XANAX0.5 MG PO
[2024-06-04] MEDS ORDERED: METOPROLOL TARTRATE INJ 1 MG/ML VIAL ONE ×3 (12:42→14:10)
[2024-06-04] MEDS ORDERED: AMIODARONE 900MG 500 ML IV SCH (12:45)
[2024-06-04] MEDS ORDERED: HYDROCODON-ACE1 EA12 PO (13:49)
[2024-06-04] MEDS ORDERED: METOCLOPRAMIDE HCL 10 MG/2ML VIAL ONE (14:10)
[2024-06-04] MEDS ORDERED: LIDOCAINE HCL 2% LOCAL INJ 5 ML SDV VIAL INJ ONE (14:10)
[2024-06-04] MEDS ORDERED: PHENYLEPHRINE HCL 1% 10 MG/ML VIAL ONE (14:10)
[2024-06-04] MEDS ORDERED: SEVOFLURANE INHAL SOLN 250 ML PEN BTL ONE (14:10)
[2024-06-04] MEDS ORDERED: ACETAMINOPHEN 1000 MG/100 ML IV ONE (14:10)
[2024-06-04] MEDS ORDERED: EPHEDRINE SULFATE INJ 50 MG/ML VIAL ONE (14:10)
[2024-06-04] MEDS ORDERED: SUCCINYLCHOLINE CHLORIDE 20 MG/ML 10ML VIAL ONE (14:10)
[2024-06-04] MEDS ORDERED: DEXAMETHASONE SOD PHOS INJ 4 MG/ML SDV ONE (14:10)
[2024-06-04] MEDS ORDERED: PROPOFOL IV EMULSION 10 MG/ML 20 ML VIAL ONE (14:10)
[2024-06-04] MEDS ORDERED: ONDANSETRON HCL INJ 2MG/ML 2ML 2 MG/ML VIAL ONE (14:10)
[2024-06-04] MEDS ORDERED: ROCURONIUM BROMIDE 10 MG/ML 5ML VIAL IV ONE (14:10)
[2024-06-04] MEDS ORDERED: Morphine 10mg syringe 10 MG/ML INJ ONE (14:26)
[2024-06-04] MEDS ORDERED: FENTANYL CITRATE/PF 100MCG/2 ML INJ ONE (14:26)
[2024-06-04 14:54] LABS: ANION GAP 18.3 mmol/L (8-16); CREATININE, SERUM 0.87 mg/dL (0.57-1.11); POTASSIUM 4.3 mmol/L (3.5-5.1)
[2024-06-04] MEDS ORDERED: ONDANSETRON HCL 4 MG ORAL DISINTEGRATING TAB PO PRN (15:45)
[2024-06-04] MEDS: ONDANSETRON HCL INJ 2MG/ML 2ML 2 MG/ML VIAL IV PRN (15:55)
[2024-06-04] MEDS ORDERED: LEVALBUTEROL HCL SOLN NEBU 0.63 MG/3 ML NEB INH PRN (16:30)
[2024-06-04] MEDS ORDERED: HYDROCODONE/APAP 7.5MG-325MG 1 EA TAB PO PRN (16:30)
[2024-06-04] MEDS ORDERED: ALPRAZOLAM 0.5 MG TAB PO PRN (16:30)
[2024-06-04] MEDS: BUDESONIDE/FORMOTEROL 160/4.5MCG INHALER INH SCH (19:49)
[2024-06-04] MEDS: ATORVASTATIN 20 MG TAB PO SCH (21:36)
[2024-06-04] MEDS: HYDROCODONE/APAP 5MG-325MG TAB PO PRN (21:36)
[2024-06-05] VITALS (9 sets, daily range): BP systolic 125–151; BP diastolic 66–107; PULSE 60–73; RESP 15–25; TEMP 97.8–97.9; O2SAT 96–100
[2024-06-05] MEDS: LACTATED RINGER'S 1,000 ML ONE (01:53)
[2024-06-05] MEDS: LEVOTHYROXINE SODIUM 50 MCG TAB PO SCH (06:17)
[2024-06-05] MEDS: ASPIRIN 81 MG CHEW TAB PO SCH (08:32)
[2024-06-05] MEDS: CLOPIDOGREL BISULFATE 75 MG TAB PO SCH (08:32)
[2024-06-05] MEDS: ESCITALOPRAM OXALATE 10 MG TAB PO SCH (08:32)
[2024-06-05] MEDS: LOSARTAN POTASSIUM 25 MG TAB PO SCH (08:33)
[2024-06-05] MEDS: METOPROLOL SUCCINATE 25 MG TAB XL PO SCH (08:33)
[2024-06-05] MEDS: AMIODARONE HCL 100 ML IV ONE (08:37)
== END 2024-06-05 11:52 | disposition home or self-care (01) ==
LOC: OR 12:30 → PACU V 13:46 → INTOOBSV 13:46 → ICU 15:11
PROVIDERS: ADMIT Internal Medicine; ATTEND Internal Medicine
DX: Z03.89 Encounter for observation for other suspected diseases and conditions ruled out (principal); Z41.1 Encounter for cosmetic surgery; L98.7 Excessive and redundant skin and subcutaneous tissue; Z45.018 Encounter for adjustment and management of other part of cardiac pacemaker; I10 Essential (primary) hypertension; E78.00 Pure hypercholesterolemia, unspecified; E66.01 Morbid (severe) obesity due to excess calories; Z68.42 Body mass index [BMI] 45.0-49.9, adult; Z98.84 Bariatric surgery status; J45.909 Unspecified asthma, uncomplicated; G47.33 Obstructive sleep apnea (adult) (pediatric); I25.10 Atherosclerotic heart disease of native coronary artery without angina pectoris; Z95.5 Presence of coronary angioplasty implant and graft; I25.2 Old myocardial infarction; I49.5 Sick sinus syndrome; H91.90 Unspecified hearing loss, unspecified ear; Z79.899 Other long term (current) drug therapy; Z79.02 Long term (current) use of antithrombotics/antiplatelets; Z79.82 Long term (current) use of aspirin
CPT/HCPCS: 15836; 36415; 80048; 85025; 93005; 93288; 94799; G0378 ×2; J0690; J2270; J2371; J2405; J3010; J7121; J0330; J1100; J2001; J2765

== ENCOUNTER 2024-10-02 18:14 | Emergency (ER) | payer BC ==
[~2024-10-02] VITALS: Ht 167.6 cm; Wt 115.7 kg
[~2024-10-02 18:14] MED LIST changes: -BUPIVACAINE HCL 0.5% INJ 30 ML VIAL INJ ONE; +HYDROCODON-ACE1 EA12 PO; -MUPIROCIN 2% OINT 22 GM TUBE ONE; -PHENYLEPHRINE HCL 1% 10 MG/ML VIAL ONE; -SUGAMMADEX SODIUM 200 MG/2 ML VIAL IV ONE
[2024-10-02 18:15] VITALS: TEMP 98.6
[2024-10-02 18:40] LABS: BASOPHILS % 0.1 % (0.0-1.0); EOSINOPHILS % 0.5 % (0.0-6.0); HEMATOCRIT 42.6 % (34.2-44.1); HEMOGLOBIN 13.5 g/dL (12.0-16.0); LYMPHOCYTES # (AUTO) 1.7 (1.0-3.2); LYMPHOCYTES % 20.1 % (18.0-39.1); MEAN CORPUSCULAR HEMOGLOBIN 27.5 pg (28-32); MEAN CORPUSCULAR HGB CONC 31.7 g/dL (31-35); MEAN CORPUSCULAR VOLUME 86.8 fL (81-99); MONOCYTES # (AUTO) 0.5 (0.2-0.8); MONOCYTES % 5.5 % (4.4-11.3); NEUTROPHILS # (AUTO) 6.2 (2.1-6.9); NEUTROPHILS % 73.3 % (38.7-80.0); PLATELET COUNT 223 x10e3/uL (140-360); RED BLOOD COUNT 4.91 x10e6/uL (3.6-5.1); RED CELL DISTRIBUTION WIDTH 13.1 % (11.7-14.4); WHITE BLOOD COUNT 8.42 x10e3/uL (4.8-10.8)
[2024-10-02 19:06] LABS: ALANINE AMINOTRANSFERASE 26 IU/L (0-55); ALBUMIN 4.4 g/dL (3.5-5.0); ALBUMIN/GLOBULIN RATIO 1.2 (0.8-2.0); ALKALINE PHOSPHATASE 78 IU/L (40-150); BILIRUBIN,TOTAL 0.5 mg/dL (0.2-1.2); BLOOD UREA NITROGEN 23 mg/dL (7-26); BUN/CREATININE RATIO 24 (6-25); CALCIUM 10.7 mg/dL (8.4-10.2); CARBON DIOXIDE 21 mmol/L (22-29); CHLORIDE 107 mmol/L (98-107); CREATINE KINASE 58 IU/L (29-168); CREATININE, SERUM 0.95 mg/dL (0.57-1.11); EST GLOMERULAR FILTRATION RATE 64 ML/MIN (>=60); GLUCOSE 154 mg/dL (74-118); SODIUM 140 mmol/L (136-145); TOTAL PROTEIN 8.2 g/dL (6.5-8.1)
[2024-10-02 19:22] LABS: TROPONIN I < 0.001 ng/mL (0-0.300)
[2024-10-02] MEDS: ONDANSETRON HCL INJ 2MG/ML 2ML 2 MG/ML VIAL IV STA (19:39)
[2024-10-02] MEDS: SODIUM CHLORIDE 0.9% 1000ML 1,000 ML IV SCH (19:41)
[2024-10-02] MEDS ORDERED: PANTOPRAZOLE SO40 MG PO (22:29)
[2024-10-02] MEDS ORDERED: ONDANSETRON ODT4 MG SL (22:29)
[2024-10-02 22:30] VITALS: PULSE 89; RESP 17
[2024-10-03 01:08] VITALS: BP 121/65; PULSE 71; RESP 18; TEMP 98.3; O2SAT 98
== END 2024-10-02 23:12 | disposition home or self-care (01) ==
LOC: ER 18:19
DX: R11.2 Nausea with vomiting, unspecified (principal); A08.4 Viral intestinal infection, unspecified; R10.30 Lower abdominal pain, unspecified; E11.65 Type 2 diabetes mellitus with hyperglycemia; I10 Essential (primary) hypertension; I25.10 Atherosclerotic heart disease of native coronary artery without angina pectoris; E03.9 Hypothyroidism, unspecified; J45.909 Unspecified asthma, uncomplicated; R94.31 Abnormal electrocardiogram [ECG] [EKG]
CPT/HCPCS: 36415; 71045; 74177; 80053; 82550; 82948; 83690; 84484; 85025; 93005; 99284; J2405; J2470; J7030

== ENCOUNTER → 2024-12-17 | Outpatient (REF) | payer BC ==
[~2024-12-17] MED LIST changes: +ONDANSETRON ODT4 MG SL
== END ==
LOC: MAMMO 06:30
PROVIDERS: ATTEND Family Medicine
DX: Z12.31 Encounter for screening mammogram for malignant neoplasm of breast (principal)
CPT/HCPCS: 77067

== ENCOUNTER 2025-01-08 08:31 | Emergency (ER) | payer BC, MEDICARE ==
[~2025-01-08] VITALS: Ht 167.6 cm; Wt 115.7 kg
[2025-01-08 08:31] VITALS: TEMP 97.6
[2025-01-08] MEDS ORDERED: DEXAMETHASONE SOD PHOS 10 MG/1 ML VIAL ONE (08:37)
[2025-01-08] MEDS ORDERED: HYDROXYZINE HCL 25 MG TAB ONE (08:37)
[2025-01-08] MEDS: DEXAMETHASONE SOD PHOS 10 MG/1 ML VIAL IV ONE (08:47)
[2025-01-08] MEDS: HYDROXYZINE HCL 25 MG TAB PO SCH (08:47)
[2025-01-08] MEDS: FAMOTIDINE 20 MG/2 ML VIAL IV STA (09:08)
[2025-01-08 09:21] VITALS: PULSE 79; RESP 18; O2SAT 96
== END 2025-01-08 10:30 | disposition home or self-care (01) ==
LOC: ER 08:33
DX: L29.9 Pruritus, unspecified (principal); T78.40XA Allergy, unspecified, initial encounter; I10 Essential (primary) hypertension; E11.9 Type 2 diabetes mellitus without complications; J45.909 Unspecified asthma, uncomplicated; E03.9 Hypothyroidism, unspecified; I25.10 Atherosclerotic heart disease of native coronary artery without angina pectoris; Z98.84 Bariatric surgery status
CPT/HCPCS: 99283; J1100; J3410

== ENCOUNTER 2025-05-01 10:21 | Emergency (ER) | payer BC, MEDICARE ==
[~2025-05-01] VITALS: Ht 167.6 cm; Wt 105.2 kg
[2025-05-01] MEDS: MECLIZINE HCL 12.5 MG TAB PO ONE (11:44)
[2025-05-01] MEDS ORDERED: SODIUM CHLORIDE FLUSH 10 ML SYR IV PRN (11:45)
[2025-05-01] MEDS ORDERED: IOPAMIDOL 370 MG/ML 100 ML INFUS..BTL INJ ONE (12:23)
[2025-05-01] MEDS ORDERED: SODIUM CHLORIDE 0.9% 100 ML ONE (12:23)
[2025-05-01 12:25] LABS: BASOPHILS % 0.6 % (0.0-1.0); EOSINOPHILS % 5.1 % (0.0-6.0); LYMPHOCYTES % 31.3 % (18.0-39.1); MONOCYTES % 7.4 % (4.4-11.3); NEUTROPHILS % 55.3 % (38.7-80.0); RED CELL DISTRIBUTION WIDTH 14.2 % (11.7-14.4)
[2025-05-01 12:42] LABS: INR 1.04
[2025-05-01 13:05] LABS: EST GLOMERULAR FILTRATION RATE 89.0 ML/MIN (>=60)
[2025-05-01 13:48] LABS: LEUKOCYTE ESTERASE ,URINE NEGATIVE (NEGATIVE); PROTEIN,URINE DIPSTICK NEGATIVE (NEGATIVE); URINE UROBILINOGEN 4 mg/dL (0.2 - 1)
[2025-05-01 14:00] VITALS: PULSE 76; RESP 18; TEMP 97.9; O2SAT 97
[2025-05-01 14:01] LABS: EPITHELIAL CELLS,URINE FEW /LPF; WBC,URINE (MAN) 0-5 /HPF (0-5)
[2025-05-01] MEDS ORDERED: MECLIZINE HCL12.5 MG PO (14:10)
[2025-05-01] MEDS ORDERED: MECLIZINE HCL25 MG PO (14:12)
== END 2025-05-01 14:24 | disposition home or self-care (01) ==
LOC: ER 11:20
DX: R26.81 Unsteadiness on feet (principal); H81.10 Benign paroxysmal vertigo, unspecified ear; I10 Essential (primary) hypertension; E11.9 Type 2 diabetes mellitus without complications; E03.9 Hypothyroidism, unspecified; I25.10 Atherosclerotic heart disease of native coronary artery without angina pectoris; J45.909 Unspecified asthma, uncomplicated; Z95.810 Presence of automatic (implantable) cardiac defibrillator; Z98.84 Bariatric surgery status
CPT/HCPCS: 36415; 70496; 70498; 71045; 80053; 81001; 83880; 84484; 85025; 85610; 85730; 93005; 94760; 99284; J7050; J8597; Q9967

== ENCOUNTER 2025-05-28 16:49 | Inpatient (IN) | payer BC, MEDICARE ==
[~2025-05-28] VITALS: Ht 167.6 cm; Wt 105.2 kg
[~2025-05-28 16:49] MED LIST changes: +MECLIZINE HCL12.5 MG PO; +MECLIZINE HCL25 MG PO
[2025-05-28 17:00] VITALS: TEMP 97.1
[2025-05-28 17:15] LABS: BASOPHILS % 0.1 % (0.0-1.0); EOSINOPHILS % 1.8 % (0.0-6.0); LYMPHOCYTES % 29.8 % (18.0-39.1); MONOCYTES % 5.7 % (4.4-11.3); NEUTROPHILS % 62.2 % (38.7-80.0); RED CELL DISTRIBUTION WIDTH 14.1 % (11.7-14.4)
[2025-05-28] MEDS ORDERED: ASPIRIN 81 MG CHEW TAB PO ONE (17:15)
[2025-05-28 17:29] LABS: EST GLOMERULAR FILTRATION RATE 79.0 ML/MIN (>=60)
[2025-05-28 17:57] VITALS: PULSE 71; RESP 17; O2SAT 100
[2025-05-28] MEDS: ASPIRIN 81 MG CHEW TAB PO ONE (18:27)
[2025-05-28 18:38] VITALS: PULSE 60; RESP 15
[2025-05-28] MEDS: ATORVASTATIN 40 MG TAB PO SCH (20:07)
[2025-05-28 22:09] VITALS: BP 141/59; PULSE 62; RESP 20; TEMP 97.6; O2SAT 100
[2025-05-28 23:42] VITALS: BP 139/64; PULSE 63; RESP 18; TEMP 97.9; O2SAT 100
[2025-05-29] VITALS (20 sets, daily range): BP systolic 106–155; BP diastolic 42–90; PULSE 66–88; RESP 14–23; TEMP 97–98.9; O2SAT 95–100
[2025-05-29] MEDS ORDERED: LEVALBUTEROL HCL SOLN NEBU 0.63 MG/3 ML NEB INH PRN (04:00)
[2025-05-29] MEDS ORDERED: ALPRAZOLAM 0.5 MG TAB PO PRN (04:00)
[2025-05-29] MEDS: LEVOTHYROXINE SODIUM 50 MCG TAB PO SCH (05:48)
[2025-05-29] MEDS: PANTOPRAZOLE SOD 40 MG TABEC PO SCH (05:48)
[2025-05-29 07:00] LABS: BASOPHILS % 0.4 % (0.0-1.0); EOSINOPHILS % 3.9 % (0.0-6.0); LYMPHOCYTES % 33.8 % (18.0-39.1); MONOCYTES % 7.1 % (4.4-11.3); NEUTROPHILS % 54.4 % (38.7-80.0); RED CELL DISTRIBUTION WIDTH 14.1 % (11.7-14.4)
[2025-05-29 07:24] LABS: CHOL/HDL RATIO 3.5 (3.0-3.6); EST GLOMERULAR FILTRATION RATE 93.0 ML/MIN (>=60); LDL CHOLESTEROL 71.0 MG/DL (60-130)
[2025-05-29 08:04] LABS: B-TYPE NATRIURETIC PEPTIDE2 21.4 pg/mL (0-100)
[2025-05-29] MEDS: LOSARTAN POTASSIUM 25 MG TAB PO SCH (08:49)
[2025-05-29] MEDS: ASPIRIN 81 MG ENTERIC COATED PO SCH (08:49)
[2025-05-29] MEDS: METOPROLOL SUCCINATE 25 MG TAB XL PO SCH (08:50)
[2025-05-29] MEDS: ESCITALOPRAM OXALATE 10 MG TAB PO SCH (08:50)
[2025-05-29] MEDS: CLOPIDOGREL BISULFATE 75 MG TAB PO SCH (08:50)
[2025-05-29] MEDS ORDERED: PANTOPRAZOLE SOD 40 MG TABEC PO SCH (09:00)
[2025-05-29] MEDS ORDERED: REGADENOSON 0.4 MG/5 ML SYR IV ONE (10:06)
[2025-05-29] MEDS ORDERED: DIPHENHYDRAMINE HCL INJ 50 MG/ML VIAL ONE (10:28)
[2025-05-29] MEDS ORDERED: ALBUTEROL/IPRATROPIUM 3 ML NEB ONE ×2 (10:37→10:38)
[2025-05-29] MEDS ORDERED: FAMOTIDINE 20 MG/2 ML VIAL IV ONE ×2 (10:37→10:38)
[2025-05-29] MEDS ORDERED: SODIUM CHLORIDE 0.9% 500ML 500 ML ONE (10:55)
[2025-05-29 11:46] LABS: BASOPHILS % 0.0 % (0.0-1.0); EOSINOPHILS % 0.5 % (0.0-6.0); LYMPHOCYTES % 55.5 % (18.0-39.1); MONOCYTES % 2.2 % (4.4-11.3); NEUTROPHILS % 41.5 % (38.7-80.0); RED CELL DISTRIBUTION WIDTH 14.2 % (11.7-14.4)
[2025-05-29] MEDS: SODIUM CHLORIDE 0.9% 1000ML 1,000 ML IV SCH (11:48)
[2025-05-29 12:10] LABS: EST GLOMERULAR FILTRATION RATE 92.0 ML/MIN (>=60)
[2025-05-29] MEDS: ONDANSETRON HCL INJ 2MG/ML 2ML 2 MG/ML VIAL ONE (12:14)
[2025-05-29] MEDS: ONDANSETRON HCL INJ 2MG/ML 2ML 2 MG/ML VIAL IV STA (12:34)
[2025-05-30] VITALS (7 sets, daily range): BP systolic 110–124; BP diastolic 53–59; PULSE 62–74; RESP 11–20; TEMP 97.3–97.5; O2SAT 95–100
== END 2025-05-30 08:52 | disposition home or self-care (01) | DRG 312 ==
LOC: ER 17:10 → ERHOLD 17:16 → MED/SURG3 19:04 → ICU 05-29 11:22 → OBSVTOIN 05-29 15:18
PROVIDERS: ADMIT Internal Medicine; ATTEND Internal Medicine
DX: I95.2 Hypotension due to drugs (principal); R07.9 Chest pain, unspecified; L50.0 Allergic urticaria; K52.29 Other allergic and dietetic gastroenteritis and colitis; T46.3X5A Adverse effect of coronary vasodilators, initial encounter; I25.10 Atherosclerotic heart disease of native coronary artery without angina pectoris; E03.9 Hypothyroidism, unspecified; E11.9 Type 2 diabetes mellitus without complications; I10 Essential (primary) hypertension; J44.9 Chronic obstructive pulmonary disease, unspecified; E78.5 Hyperlipidemia, unspecified; F41.9 Anxiety disorder, unspecified; K21.9 Gastro-esophageal reflux disease without esophagitis; R51.9 Headache, unspecified; Z79.02 Long term (current) use of antithrombotics/antiplatelets; Z79.82 Long term (current) use of aspirin; Z79.890 Hormone replacement therapy; Z79.51 Long term (current) use of inhaled steroids; Z95.5 Presence of coronary angioplasty implant and graft; Z95.810 Presence of automatic (implantable) cardiac defibrillator; Z90.49 Acquired absence of other specified parts of digestive tract; Z98.84 Bariatric surgery status; Z88.1 Allergy status to other antibiotic agents; Z88.8 Allergy status to other drugs, medicaments and biological substances; Z83.3 Family history of diabetes mellitus; Z82.49 Family history of ischemic heart disease and other diseases of the circulatory system; Y92.239 Unspecified place in hospital as the place of occurrence of the external cause
CPT/HCPCS: 36415; 71045; 78452; 80053; 80061; 82550; 82948; 83036; 83690; 83880; 84443; 84484; 85025; 93005; 93017; 94799; 99252; 99284; A9502; G0378; J1200; J1308; J2405; J2470; J7030; J7040